=== PATIENT | female | born 1965 | race Hispanic/Latino ===

== ENCOUNTER → 2019-01-13 | Day surgery (SDC) | payer OTHER ==
[~2019-01-13] MED LIST: FENTANYL CITRATE/PF 100MCG/2 ML INJ ONE; HYOSCYAMINE 0.125 MG TAB ONE; LIPITOR20 MG; METFORMIN HCL500 MG PO; MIDAZOLAM HCL 2 MG/2 ML VIAL ONE; PANTOPRAZOLE SO40 MG PO; PROPOFOL IV EMULSION 10 MG/ML 50 ML VIAL ONE; [UNRECOGNIZED DRUG - MIXTURE]
--- OUTSIDE RECORDS SUMMARY | 2019-01-13 07:12 | XMS REPORT | Summary of Care ---
Author Author [facility] Organization [facility] Address Unknown Phone Unavailable Encounter SUNITHA Otoole(FIN) [id number] Date(s): 07/18/18 - 07/19/18 [facility] [address] [facility] [address] [place] [address]- Vital Signs No data available for this section Problem List Condition Effective Dates Status Health Status Informant BMI Active 30.0-30.9,adult(Conf irmed) Depression(Confirmed Active ) Chronic Active GERD(Confirmed) History of calculus 09/03/14 Active of kidney1 Hypertriglyceridemia Active (Confirmed) Microscopic 10/08/14 Active hematuria2 Osteopenia3 10/08/14 Active Smoker4 09/03/14 Active Diabetes type 2, Active uncontrolled(Confirm ed) Vitamin D Active deficiency(Confirmed ) 1Data migrated from [employer] on 11/04/14. 2Data migrated from [employer] on 11/04/14. 3Data migrated from [employer] on 11/04/14. 4Data migrated from [employer] on 11/04/14. Allergies, Adverse Reactions, Alerts Substance Reaction Severity Status NKDA Active Medications FreeStyle Bal [place] 1 ea, MISC, ONCE, Last HBA1c:<> Insulin Dep:Y High freq tests for: Poor control Certified Medically Necessary:<>, # 1 ea, Not insulin dependent, Does not use insulin pump, Last DM eval date 12/29/17, 0 Refill(s), [facility]acy: [id number] Start Date: 07/19/18 Status: Ordered FreeStyle Bal [place] 3 ea, MISC, Q10day, # 27 ea, Not insulin dependent, Does not use insulin pump, L ast DM eval date 12/29/17, 3 Refill(s), Pharmacy: [id number] Start Date: 07/19/18 Stop Date: 07/14/19 Status: Ordered Results No data available for this section Immunizations Given and Recorded Vaccine Date Status Refusal Reason influenza virus vaccine, inactivated1 01/24/18 Given influenza virus vaccine, inactivated2 05/22/17 Given influenza virus vaccine, inactivated 02/16/16 Given pneumococcal 23-valent vaccine3 07/19/17 Given 1Result Comment: Patient waited 15 minutes, no reaction noted. 2Result Comment: Patient waited 15 minutes, no reaction noted. 3Result Comment: Patient waited 15 minutes, no reaction noted. Procedures Procedure Date Related Diagnosis Body Site Status Colonoscopy1, 2 03/08/17 Completed Esophagogastroduodenoscopy3 02/28/17 Completed Mammogram 09/17/15 Completed Diabetic foot examination 09/09/15 Completed Bone density scan4 09/28/14 Completed Percutaneous extraction of kidney stone with 2011 Completed fragmentation procedure5 Total hysterectomy6 2004 Completed Eye operation7 1999 Completed 1Normal Next one [address] Leone 22 sessile poylps, 5 year repeat 3gastritis, hiatal hernia, reflux esophagitis 4Osteopenia 5Per patient with Dr Olivo 6oopherectomy due to fibroids 7lasix for both eyes Social History Social History Type Response Exercise Exercise duration: 60. Exercise frequency: 3-4 times/week. Exercise type: meir. Employment/School Status: Retired. Alcohol Past, Type Beer. Frequency: 1-2 times per month. Smoking Status Current every day smoker; Type: Cigarettes; Lives with someone who smokes; Exposure to Tobacco Smoke self; Cigarette Smoking Last 365 Days Yes; Reg Smoking Cessation Counseling Yes; Tobacco use per day: 10; Other Tobacco Frequency 10 cigs/day; entered on: 04/09/18 Assessment and Plan No data available for this section
--- OUTSIDE RECORDS SUMMARY | 2019-01-13 07:12 | XMS REPORT | Summary of Care ---
Author Author [facility] Organization [facility] Address Unknown Phone Unavailable Encounter SUNITHA Otoole(RESHMA) [id number] Date(s): 10/22/15 - 11/20/15 [facility] [address] [place] [address]- Discharge Disposition: Home or Self Care Attending Physician: Eli Moreno MD Referring Physician: Eli Moreno MD Vital Signs No data available for this section Problem List Condition Effective Dates Status Health Status Informant History of calculus 09/03/14 Active of kidney1 Microscopic 10/08/14 Active hematuria2 Obesity(Confirmed) Active Osteopenia3 10/08/14 Active Hypertriglyceridemia Active without hypercholesterolemia (Confirmed) Smoker4 09/03/14 Active Diabetes mellitus Active type 2, controlled(Confirmed ) 1Data migrated from [employer] on 11/04/14. 2Data migrated from [employer] on 11/04/14. 3Data migrated from [employer] on 11/04/14. 4Data migrated from [employer] on 11/04/14. Allergies, Adverse Reactions, Alerts Substance Reaction Severity Status NKDA Active Medications No data available for this section Results No data available for this section Immunizations No data available for this section Procedures Procedure Date Related Diagnosis Body Site Mammogram 09/17/15 Diabetic foot examination 09/09/15 Bone density scan1 09/28/14 Colonoscopy2 05/2013 Percutaneous extraction of kidney stone with 2011 fragmentation procedure3 Hysterectomy4 2005 Eye operation5 1999 1Osteopenia 2Normal Next one [address] Leone 3Per patient with Dr Olivo 4oopherectomy due to fibroids 5lasix for both eyes Social History Social History Type Response Alcohol Current, Type Beer. Frequency: 1-2 times per month. Smoking Status Current every day smoker; Type: Cigarettes; Exposure to Tobacco Smoke None; Cigarette Smoking Last 365 Days Yes; Reg Smoking Cessation Counseling No Assessment and Plan No data available for this section
--- OUTSIDE RECORDS SUMMARY | 2019-01-13 07:12 | XMS REPORT | Summary of Care ---
Author Author [facility] Organization [facility] Address Unknown Phone Unavailable Encounter SUNITHA Otoole(RESHMA) [id number] Date(s): 08/21/18 - 08/21/18 [facility] [address] [facility] [address] [place] [address]- Discharge Disposition: Home or Self Care Attending Physician: Eli Moreno MD Vital Signs Most recent to 1 oldest [Reference Range]: Height 149.86 cm (08/21/18 8:00 AM) Temperature Oral 98.2 DegF [96.4-99.1 DegF] (08/21/18 8:00 AM) Blood Pressure 106/70 mmHg [90-140/60-90 mmHg] (08/21/18 8:00 AM) Respiratory Rate 15 BRMIN [14-20 BRMIN] (08/21/18 8:00 AM) Peripheral Pulse 55 bpm Rate [60-100 bpm] *LOW* (08/21/18 8:00 AM) Weight 69.545 kg (08/21/18 8:00 AM) Body Mass Index 30.97 m2 (08/21/18 8:00 AM) Problem List Condition Effective Dates Status Health Status Informant BMI Active 30.0-30.9,adult(Conf irmed) Depression(Confirmed Active ) Chronic Active GERD(Confirmed) History of calculus 09/03/14 Active of kidney(Confirmed)1 Hypertriglyceridemia Active (Confirmed) Microscopic 10/08/14 Active hematuria(Confirmed) 2 Osteopenia3 10/08/14 Active Smoker4 09/03/14 Active Diabetes type 2, Active controlled(Confirmed ) Vitamin D Active deficiency(Confirmed ) 1Data migrated from [employer] on 11/04/14. 2Data migrated from [employer] on 11/04/14. 3Data migrated from [employer] on 11/04/14. 4Data migrated from [employer] on 11/04/14. Allergies, Adverse Reactions, Alerts Substance Reaction Severity Status NKDA Active Medications No Known Medications Results No data available for this section [...] Other Tobacco Frequency 10 cigs/day; entered on: 08/21/18 Assessment and Plan No data available for this section
--- OUTSIDE RECORDS SUMMARY | 2019-01-13 07:12 | XMS REPORT | Summary of Care ---
Author Author [facility] Organization [facility] Address Unknown Phone Unavailable Encounter SUNITHA Otoole(FIN) [id number] Date(s): 01/24/18 - 01/24/18 [facility] [address] [facility] [address] [place] [address]- Discharge Disposition: Home or Self Care Attending Physician: Valentina Pacheco DO Vital Signs Most recent to 1 oldest [Reference Range]: Height 149.86 cm (01/24/18 8:48 AM) Temperature Oral 98.2 DegF [96.4-99.1 DegF] (01/24/18 8:48 AM) Blood Pressure 109/67 mmHg [90-140/60-90 mmHg] (01/24/18 8:48 AM) Respiratory Rate 14 BRMIN [14-20 BRMIN] (01/24/18 8:48 AM) Peripheral Pulse 60 bpm Rate [60-100 bpm] (01/24/18 8:48 AM) Weight 68.182 kg (01/24/18 8:48 AM) Body Mass Index 30.36 m2 (01/24/18 8:48 AM) Problem List Condition Effective Dates Status [...] Substance Reaction Severity Status NKDA Active Medications losartan 25 mg oral tablet 12.5 mg=0.5 tab, PO, Daily, X 90 day, # 45 tab, 1 Refill(s), [facility]acy: [id number] Start Date: 01/24/18 Stop Date: 04/22/18 Status: Completed Results No data available for this section [...]
--- OUTSIDE RECORDS SUMMARY | 2019-01-13 07:12 | XMS REPORT | Summary of Care ---
Author Author [facility] Organization [facility] Address Unknown Phone Unavailable Encounter SUNITHA Otoole(RESHMA) [id number] Date(s): 08/30/18 - 08/30/18 [facility] [address] [place] [address]- Discharge Disposition: Home or Self Care Attending Physician: Valentina Pacheco DO Referring Physician: Valentina Pacheco DO Vital Signs No data available for this [...] [employer] on 11/04/14. Allergies, Adverse Reactions, Alerts No Known Medication Allergies Medications No data available for this section [...] Related Diagnosis Body Site Status Colonoscopy1, 2 11/9/17 Completed Esophagogastroduodenoscopy3 02/28/17 Completed Mammogram 09/17/15 Completed [...]
--- OUTSIDE RECORDS SUMMARY | 2019-01-13 07:12 | XMS REPORT | Continuity of Care Document ---
Author Author [facility] Organization [facility] Address Unknown Phone Unavailable Care Team Providers Care Emblem Cutter Name Role Phone [facility] Unavailable Unavailable Problems Problem Status Onset Date Classification Date Reported Comments Source ROUTINE Active 08/21/2018 [facility] E66.9 / Z68.31 / E11.9 / E78.6 Active 10/23/2016 [facility] E11.9 DIABETES Active 10/22/2015 [facility] SCREENING MAMMOGRAM Active 09/13/2015 [facility] E11.9 *DR. CONNER BOWMAN ADDRESS: [facility] [place] Active 04/12/2015 [facility] Microscopic hematuria (disorder) Active 10/08/2014 Problem 12/03/2018 Data migrated from [facility] on 11/04/14. [facility] Osteopenia (disorder) Active 10/08/2014 Problem 12/03/2018 Data migrated from [facility] on 11/04/14. [facility] OSTEOPENIA Active 10/08/2014 Condition 10/08/2014 [facility] HEMATURIA, MICROSCOPIC Active 10/08/2014 Condition 10/08/2014 [facility] V49.81 POSTMENOPAUSAL STATUS Active 09/24/2014 [facility] History of calculus of kidney (situation) Active 09/03/2014 Problem 12/03/2018 Data migrated from [facility] on 11/04/14. [facility] Smoker (finding) Active 09/03/2014 Problem 12/03/2018 [facility] migrated from [facility] on 11/04/14. [facility] 29.0-29.9, ADULT Active 09/03/2014 Condition 10/08/2014 [facility] PREVENTIVE HEALTH CARE Active 09/03/2014 Condition 10/08/2014 [facility] HX OF KIDNEY STONE Active 09/03/2014 Condition 10/08/2014 [facility] HYPERLIPIDEMIA Active 09/03/2014 Condition 10/08/2014 [facility] IBS (IRRITABLE BOWEL SYNDROME) Active 09/03/2014 Condition 10/08/2014 [facility] TINNITUS, UNSPECIFIED Active 09/03/2014 Condition 10/08/2014 [facility] OTHER SCREENING MAMMOGRAM Active 09/03/2014 Condition 10/08/2014 [facility] POSTMENOPAUSAL STATUS Active 09/03/2014 Condition 10/08/2014 [facility] DYSURIA Active 09/03/2014 Condition 10/08/2014 [facility] SCREENING FOR COLON CANCER Active 09/03/2014 Condition 10/08/2014 [facility] SMOKER Active 09/03/2014 Condition 10/08/2014 [facility] Hyperlipidemia (disorder) Active Problem 10/28/2016 [facility] Obesity (disorder) Active Problem 10/28/2016 [facility] Renal impairment (disorder) Active Problem 10/28/2016 [facility] Pure hyperglyceridemia (disorder) Active Problem 11/23/2015 [facility] Body mass index 30+ - obesity (finding) Active Problem 12/03/2018 [facility] Depressive disorder (disorder) Active Problem 12/03/2018 [facility] Gastroesophageal reflux disease (disorder) Active Problem 12/03/2018 [facility] Hypertriglyceridemia (disorder) Active Problem 12/03/2018 [facility] Diabetes mellitus type 2 (disorder) Active Problem 12/03/2018 [facility] Vitamin D deficiency (disorder) Active Problem 12/03/2018 [facility] Fatigue (finding) Active Problem 10/25/2017 [facility] Generalized aches and pains (finding) Active Problem 10/25/2017 [facility] Irritable colon (disorder) Active Problem 10/25/2017 [facility] Medications Medication Details Route Status Patient Instructions Ordering Provider Order Date Source FreeStyle Bal Sensor 3 ea, MISC, Q10day, # 27 ea, Not insulin dependent, Does not use insulin pump, Last DM eval date 12/29/17, 3 Refill(s), Pharmacy: [id number] Active 07/19/2018 [facility] FreeStyle Bal Potwin 1 ea, MISC, ONCE, Last HBA1c: Insulin Dep:Y High freq tests for: Poor control Certified Medically Necessary:, # 1 ea, Not insulin dependent, Does not use insulin pump, Last DM eval date 12/29/17, 0 Refill(s), Pharmacy: [facility][id number] Active 07/19/2018 [facility] metFORMIN 500 mg oral tablet, extended release See Instructions, TAKE 1 TABLET TWICE DAILY WITH MEALS, # 180 tab, 1 Refill(s), [id number] Active 05/14/2018 [facility] losartan 25 mg oral tablet 12.5 mg=0.5 tab, PO, Daily, # 45 tab, 1 Refill(s), [id number] Active 04/22/2018 [facility] Sulfamethoxazole 800 MG / Trimethoprim 160 MG Oral Tablet 1 tab, PO, BID, X 7 day, # 14 tab, 0 Refill(s), [id number] No Longer Active 04/09/2018 [facility] losartan 25 mg oral tablet 12.5 mg=0.5 tab, PO, Daily, X 90 day, # 45 tab, 1 Refill(s), [id number] No Longer Active 01/24/2018 [facility] metFORMIN 500 mg oral tablet, extended release 500 mg=1 tab, PO, BID-Meals, # 180 tab, 1 Refill(s), [id number] Active 07/20/2017 [facility] MegaKrill 0 Refill(s) Active 07/19/2017 [facility] meclizine 25 mg oral tablet 25 mg=1 tab, PO, TID, PRN for dizziness, X 21 day, # 60 tab, 0 Refill(s), [id number] No Longer Active 07/19/2017 [facility] Vitamin D3 See Instructions, 0 Refill(s) Active 07/19/2017 [facility] garlic oral capsule 0 Refill(s) Active 07/19/2017 [facility] meclizine 25 mg oral tablet 25 mg=1 tab, PO, TID, PRN for dizziness, # 60 tab, 0 Refill(s), [id number] No Longer Active 07/17/2017 [facility] ATORVASTATIN CALCIUM 20 MG TABS Take one tablet by mouth once a day Active 10/08/2014 [facility] DIALYVITE 800/ULTRA D TABS Take one tablet by mouth once a day Active 10/08/2014 [facility] DICYCLOMINE HCL 10 MG CAPS Take one capsule by mouth four times daily. Active 09/03/2014 [facility] CIPROFLOXACIN HCL 500 MG TABS Take one tablet every 12 hours No Longer Active 09/03/2014 [facility] Allergies, Adverse Reactions, Alerts Substance Category Reaction Severity Reaction type Status Date Reported Comments Source No Known Medication Allergies Assertion Drug allergy [facility] Immunizations Immunization Date Given Site Status Last Updated Comments Source influenza virus vaccine, inactivated<sup>1</sup> 01/24/2018 Left Deltoid completed [facility] Result Comment: Patient waited 15 minutes, no reaction noted. [facility] pneumococcal 23-valent vaccine<sup>3</sup> 07/19/2017 Left Deltoid completed [facility] Result Comment: Patient waited 15 minutes, no reaction noted. [facility] pneumococcal 23-valent vaccine<sup>1</sup> 07/19/2017 Left Deltoid completed [facility] Result Comment: Patient waited 15 minutes, no reaction noted. [facility] influenza virus vaccine, inactivated<sup>2</sup> 05/22/2017 Left Deltoid completed [facility] Result Comment: Patient waited 15 minutes, no reaction noted. [facility] influenza virus vaccine, inactivated 02/16/2016 Left Deltoid completed [facility] Results Order Name Results Value Reference Range Date Interpretation Comments Source Chemistry TSH 1.110 0.360 - 3.740 09/03/2014 [facility] Chemistry CHOLESTEROL 272 - 199 09/03/2014 [facility] Chemistry TRIGLYCERIDE 373 - 149 09/03/2014 [facility] Chemistry HDL 41 >=61 09/03/2014 [facility] Chemistry LDL 156 - 99 09/03/2014 [facility] Chemistry SODIUM 139 MEQ/L 135 - 145 09/03/2014 [facility] Chemistry POTASSIUM 3.7 MEQ/L 3.5 - 5.1 09/03/2014 [facility] Chemistry CREATININE 0.7 0.5 - 1.4 09/03/2014 [facility] Chemistry BUN 14 7 - 22 09/03/2014 [facility] Chemistry BUN/CREAT 20 6 - 25 09/03/2014 [facility] Chemistry ALBUMIN 4.2 3.5 - 5.0 09/03/2014 [facility] Chemistry CALCIUM 9.7 8.5 - 10.5 09/03/2014 [facility] Chemistry SGPT (ALT) 43 0 - 65 09/03/2014 [facility] Chemistry SGOT (AST) 18 0 - 37 09/03/2014 [facility] Chemistry ALK PHOS 116 39 - 136 09/03/2014 [facility] Hematology HGB 15.5 12.0 - 16.0 09/03/2014 [facility] Hematology HCT 47.0 36.0 - 48.0 09/03/2014 [facility] Hematology PLATELETS 239 K/CMM 133 - 450 09/03/2014 [facility] Urinalysis UA COLOR Yellow 09/03/2014 [facility] Urinalysis BACTERIA URN Occasional 09/03/2014 [facility] Pathology Reports No Data Provided for This Section Diagnostic Reports Report Value Date Source Breast Mammo Scrn MATEO w sabrina incl CAD MA BILATERAL DIGITAL SCREENING MAMMOGRAM 3D/2D WITH CAD: 08/30/2018 CLINICAL: /Routine. Current study was evaluated with a Computer Aided Detection (CAD) system. COMPARISON:Comparison is made to exams dated: 09/17/2015 mammogram - [facility], 04/08/2011 mammogram, and 04/10/2012 mammogram. TECHNIQUE: Digital Breast Tomosynthesis was performed and utilized for Interpretation. Getting[employer] Version 1.3 was utilized for computer aided detection. FINDINGS: There are scattered fibroglandular densities in both breasts. There are benign calcifications in both breasts. No significant masses, calcifications, or other findings are seen in either breast. There has been no significant interval change. IMPRESSION: BENIGN RECOMMENDATION:There is no mammographic evidence of malignancy. A 1 year screening mammogram is recommended.(08/31/2019) This exam was interpreted at [id number] for [facility]. Rodolfo mayorga/jennie:09/11/2018 15:30:41 [employer] Agent(s): Mallory Sanchez, [facility] letter sent: BI-RADS 1/2 Mammogram BI-RADS: 2 Benign 08/30/2018 [facility] Digital Mammo Screening Mateo [place] - DIGITAL MAMMO SCREENING MATEO MA BILATERAL DIGITAL SCREENING MAMMOGRAM WITH CAD: 09/17/2015 CLINICAL: Routine. Current study was evaluated with a Computer Aided Detection (CAD) system. Comparison is made to exams dated: 04/10/2012 mammogram and 04/08/2011 mammogram. Outside films from the [place] have been requested for recent priors. There are scattered fibroglandular densities in both breasts. No significant masses, calcifications, or other findings are seen in either breast. There has been no significant interval change. IMPRESSION: NEGATIVE There is no mammographic evidence of malignancy. A 1 year screening mammogram is recommended. Lynn Mejia M.D. ap/penrad:09/30/2015 13:25:42 [employer] Agent: Mallory Sanchez, [facility] This exam was dictated and interpreted by [id number] for [facility]. letter sent: Normal exam Mammogram BI-RADS: 1 Negative 09/17/2015 [facility] Bone Density Scan PROCEDURE: Bone Density Scan REASON FOR EXAM: See Clinic Indication CLINICAL INFORMATION V49.81 Asymptomatic Postmenopausal Status (Age-Related) (Natural) COMPARISON: None. FINDINGS: The lumbar spine bone mineral density is 0.936. This is 89% of the expected normal value, T-score is -1.0. The left hip bone mineral density is 0.838. This is 87% of the expected normal value, T-score is -0.9. The femoral neck bone mineral density is 0.677. IMPRESSION: 1. Normal bone mineral density of the lumbar spine. 2. Osteopenia of the left hip. SL: 16 09/28/2014 [facility] Consultation Notes No Data Provided for This Section Discharge Summaries No Data Provided for This Section History and Physicals No Data Provided for This Section Vital Signs Vital Sign Value Date Comments Source Temperature Oral (F) 98.2 F 08/21/2018 [facility] BMI Calculated 30.97 08/21/2018 [facility] Weight 69.545 08/21/2018 [facility] Respitory Rate 15 08/21/2018 [facility] Heart Rate 55 08/21/2018 [facility] Height 149.86 cm 08/21/2018 [facility] Systolic (mm Hg) 106 08/21/2018 [facility] Diastolic (mm Hg) 70 08/21/2018 [facility] Temperature Oral (F) 98.2 F 04/09/2018 [facility] Weight 69.545 04/09/2018 [facility] BMI Calculated 30.97 04/09/2018 [facility] Height 149.86 cm 04/09/2018 [facility] Systolic (mm Hg) 109 04/09/2018 [facility] Diastolic (mm Hg) 76 04/09/2018 [facility] Respitory Rate 14 04/09/2018 [facility] Heart Rate 81 04/09/2018 [facility] Weight 68.182 01/24/2018 [facility] Height 149.86 cm 01/24/2018 [facility] BMI Calculated 30.36 01/24/2018 [facility] Temperature Oral (F) 98.2 F 01/24/2018 [facility] Respitory Rate 14 01/24/2018 [facility] Heart Rate 60 01/24/2018 [facility] Systolic (mm Hg) 109 01/24/2018 [facility] Diastolic (mm Hg) 67 01/24/2018 [facility] Respitory Rate 14 07/19/2017 [facility] Heart Rate 61 07/19/2017 [facility] Systolic (mm Hg) 113 07/19/2017 [facility] Diastolic (mm Hg) 79 07/19/2017 [facility] BMI Calculated 31.17 07/19/2017 [facility] Temperature Oral (F) 98.0 F 07/19/2017 [facility] Height 149.86 cm 07/19/2017 [facility] Weight 70 07/19/2017 [facility] Respitory Rate 16 10/08/2014 [facility] Height 60 10/08/2014 [facility] Weight 143 10/08/2014 [facility] Systolic (mm Hg) 99 10/08/2014 [facility] Diastolic (mm Hg) 71 10/08/2014 [facility] Heart Rate 56 10/08/2014 [facility] Temperature Oral (F) 97.1 F 10/08/2014 [facility] Weight 153 09/03/2014 [facility] Respitory Rate 14 09/03/2014 [facility] Systolic (mm Hg) 110 09/03/2014 [facility] Diastolic (mm Hg) 77 09/03/2014 [facility] Temperature Oral (F) 98.0 F 09/03/2014 [facility] Heart Rate 58 09/03/2014 [facility] Height 60 09/03/2014 [facility] Encounters Location Location Details Encounter Type Encounter Number Reason For Visit Attending Provider ADM Date DC Date Status Source [facility] Lab Report [id number] Eli Wagn MD 09/03/2014 09/03/2014 Medical [facility] Office Visit [id number] Eli Wang MD 09/03/2014 09/03/2014 Medical Group [facility] Outpatient [id number] Eli Wang 09/28/2014 09/29/2014 [facility] Office Visit [id number] Eli Wang MD 10/08/2014 10/08/2014 [facility] Out[facility] [id number] LEI WANG 02/04/2015 Active [facility] [id number] CONNER BOWMAN 03/30/2015 Active [facility] [id number] ELI WANG 09/09/2015 Active [facility] [id number] Eli Wang 09/17/2015 09/18/2015 [facility] OP Recurring [id number] Eli Wang 10/22/2015 11/21/2015 [facility] Outpatient [id number] ELI WANG 12/10/2015 Active [facility] [id number] CHELSEA JASON 02/16/2016 Active [facility] [id number] CHELSEA HOUSTONH 06/14/2016 Active [facility] [id number] ELI WANG 07/17/2016 Active [facility] [id number] CHELSEA HOUSTONH 09/11/2016 Active [facility] Recurring [id number] Chelsea Houstonh 09/26/2016 10/26/2016 [facility] Outpatient [id number] CHELSEA HOUSTONH 01/26/2017 [facility] [id number] NURSE VISIT 05/22/2017 [facility] Primary Care [facility] Phone Message [id number] 07/16/2017 07/18/2017 [facility] Outpatient [id number] CHELSEA JASON 07/19/2017 [facility] Primary Care [facility] Outpatient [id number] Eli Wang 07/19/2017 07/20/2017 [facility] Outpatient [id number] CHELSEA JASON 01/24/2018 [facility] Primary Care [facility] Outpatient [id number] Chelsea Jason 01/24/2018 01/25/2018 [facility] Outpatient [id number] CHELSEA JASON 04/09/2018 [facility] Primary Care [facility] Outpatient [id number] Chelsea Jason 04/09/2018 04/10/2018 [facility] Phone Message [id number] 05/14/2018 05/16/2018 [facility] Phone Message [id number] 07/18/2018 07/20/2018 [facility] Outpatient [id number] Chelsea Casie 08/21/2018 Active [facility] Outpatient [id number] Eli Wang 08/21/2018 08/22/2018 [facility] Outpatient [id number] Chelsea Houstonh 08/30/2018 08/31/2018 [facility] Procedures Procedure Code Date Perfomer Comments Source Colonoscopy<sup>1, 2</sup> [id number] 03/08/2017 Normal Next one [address] Leone sessile poylps, 5 year repeat [facility] Esophagogastroduodenoscopy<sup>3</sup> [id number] 02/28/2017 gastritis, hiatal hernia, reflux esophagitis [facility] Mammogram [id number] 09/17/2015 [facility] Diabetic foot examination 144558201 09/09/2015 [facility] Bone density scan<sup>1</sup> 878277792 09/28/2014 Osteopenia [facility] Bone density scan<sup>4</sup> [id number] 09/28/2014 Osteopenia [facility] smoking/tobacco cessation, patient education and counseling 14 09/03/2014 yes [facility] Colonoscopy<sup>2</sup> [id number] 05/31/2013 Normal Next one [address] Leone [facility] Percutaneous extraction of kidney stone with fragmentation procedure<sup>3</sup> [id number] 04/30/[address] Olivo [facility] Percutaneous extraction of kidney stone with fragmentation procedure<sup>5</sup> [id number] 04/30/[address]ivo [facility] Total hysterectomy<sup>4</sup> 462218988 04/30/2004 oopherectomy due to fibroids [facility] Hysterectomy<sup>4</sup> 582516513 04/30/2004 oopherectomy due to fibroids [facility] Total hysterectomy<sup>6</sup> 163145743 04/30/2004 oopherectomy due to fibroids [facility] Eye operation<sup>5</sup> 482286997 04/30/1999 lasix for both eyes [facility] Eye operation<sup>7</sup> 430647231 04/30/1999 lasix for both eyes [facility] Assessment and Plan No Data Provided for This Section Plan of Care No Data Provided for This Section Social History Social History Date Source Social History TypeResponse Exercise Exercise duration: 60. Exercise frequency: 3-4 [...] Tobacco Frequency 10 cigs/day; entered on: 08/21/18 07/19/2017 [facility] Social History TypeResponse Exercise Exercise duration: 60. Exercise frequency: 3-4 [...] Tobacco Frequency 10 cigs/day; entered on: 08/21/18 07/19/2017 [facility] Family History No Data Provided for This Section Advance Directives No Data Provided for This Section Functional Status No Data Provided for This Section
--- OUTSIDE RECORDS SUMMARY | 2019-01-13 07:12 | XMS REPORT | Summary of Care ---
Author Author [facility] Organization [facility] Address Unknown Phone Unavailable Encounter SUNITHA Otoole(RESHMA) [id number] Date(s): 09/17/15 - 09/17/15 [facility] [address] [place] [address]- Discharge Disposition: Home Attending Physician: Eli Moreno MD Referring Physician: [...] Procedures Procedure Date Related Diagnosis Body Site Diabetic foot examination 09/09/15 Bone density scan1 [...]
--- OUTSIDE RECORDS SUMMARY | 2019-01-13 07:12 | XMS REPORT | Summary of Care ---
Author Author [facility] Organization [facility] Address Unknown Phone Unavailable Encounter SUNITHA Otoole(FIN) [id number] Date(s): 07/16/17 - 07/17/17 [facility] [address], [address] [place] [address]- [phone] Vital Signs No data available for this section Problem List Condition Effective Dates Status Health Status Informant BMI Active 31.0-31.9,adult(Conf irmed) Depression(Confirmed Active ) Fatigue(Confirmed) Active Chronic Active GERD(Confirmed) Body Active aches(Confirmed) History of calculus 09/03/14 Active of kidney1 Hypertriglyceridemia Active (Confirmed) Irritable Active bowel(Confirmed) Microscopic 10/08/14 Active hematuria2 Osteopenia3 10/08/14 Active Smoker4 09/03/14 Active Diabetes mellitus Active type 2, controlled(Confirmed ) Vitamin D Active deficiency(Confirmed ) 1Data migrated from [employer] on 11/04/14. 2Data migrated from [employer] on 11/04/14. 3Data migrated from [employer] on 11/04/14. 4Data migrated from [employer] on 11/04/14. Allergies, Adverse Reactions, Alerts Substance Reaction Severity Status NKDA Active Medications meclizine 25 mg oral tablet 25 mg=1 tab, PO, TID, PRN for dizziness, # 60 tab, 0 Refill(s), [id number] Start Date: 07/17/17 Stop Date: 07/19/17 Status: Discontinued metFORMIN 500 mg oral tablet, extended release 500 mg=1 tab, PO, BID-Meals, # 180 tab, 1 Refill(s), Pharmacy: [facility]/pharmacy #[id number] Start Date: 07/20/17 Stop Date: 01/16/18 Status: Ordered Results No data available for this section Immunizations Given and Recorded Vaccine Date Status Refusal Reason pneumococcal 23-valent vaccine1 07/19/17 Given influenza virus vaccine, inactivated2 05/22/17 Given influenza virus vaccine, inactivated 02/16/16 Given 1Result Comment: Patient waited 15 minutes, [...] Other Tobacco Frequency 10 cigs/day; entered on: 07/19/17 Assessment and Plan No data available for this section
--- OUTSIDE RECORDS SUMMARY | 2019-01-13 07:12 | XMS REPORT | Summary of Care ---
Author Organization Unknown Address Unknown Phone Unavailable Encounter [facility]) [id number] Date(s): 09/28/14 - 09/28/14 [facility] [address] [place] [address]- Discharge Disposition: Home Physician Attending: Eli Moreno MD Physician_Referring: Eli Moreno MD Vital Signs No data available for this section Problem List No data available for this section Allergies, Adverse Reactions, Alerts Substance Reaction Severity Status NKDA Active Medications No data available for this section Results No data available for this section Immunizations No data available for this section Procedures No data available for this section Social History Social History Type Response Assessment and Plan No data available for this section
--- OUTSIDE RECORDS SUMMARY | 2019-01-13 07:12 | XMS REPORT | Summary of Care ---
Author Author [facility] Organization [facility] Address Unknown Phone Unavailable Encounter SUNITHA Otoole(FIN) [id number] Date(s): 05/14/18 - 05/15/18 [facility] [address] [place] [address]- Vital Signs No data available for this [...] Reactions, Alerts No Known Medication Allergies Medications metFORMIN 500 mg oral tablet, extended release See Instructions, TAKE 1 TABLET TWICE DAILY WITH MEALS, # 180 tab, 1 Refill(s), Pharmacy: [facility]/pharmacy #[id number] Start Date: 05/14/18 Status: Ordered Results No data available for [...]
--- OUTSIDE RECORDS SUMMARY | 2019-01-13 07:12 | XMS REPORT | Continuity of Care Document ---
Author Author [facility] Address Unknown Phone Unavailable Care Team Providers Care Medical Technologist Chief Name Role Phone MD Tiffanie, Eli WEBER Unavailable Insurance Providers Payer name Policy type / Coverage type Policy ID Covered democrat ID Policy Gonzalez CIGNA (PPO) CIGNA (PPO) CIGNA - OPEN ACCESS PLUS CIGNA (PPO) CIGNA - OPEN ACCESS PLUS CIGNA (PPO) CIGNA (PPO) CIGNA (PPO) CIGNA (PPO) CIGNA (PPO) CIGNA (PPO) Encounters Encounter Performer Location Date Office Visit Eli Moreno MD [facility] September 03, 2014 Problems Problem Effective Dates Problem Status BODY MASS INDEX 29.0-29.9, ADULT September 03, 2014 Active PREVENTIVE HEALTH CARE September 03, 2014 Active HX OF KIDNEY STONE September 03, 2014 Active HYPERLIPIDEMIA September 03, 2014 Active IBS (IRRITABLE BOWEL SYNDROME) September 03, 2014 Active TINNITUS, UNSPECIFIED September 03, 2014 Active OTHER SCREENING MAMMOGRAM September 03, 2014 Active POSTMENOPAUSAL STATUS September 03, 2014 Active DYSURIA September 03, 2014 Active SCREENING FOR COLON CANCER September 03, 2014 Active SMOKER September 03, 2014 Active Procedures Date Description Comments September 03, 2014 smoking status Current every day smoker September 03, 2014 smoking/tobacco cessation, patient education and counseling yes Medications Medication Instructions Start Date Status DICYCLOMINE HCL 10 MG CAPS Take one capsule by mouth four times daily. September 03, 2014 Active CIPROFLOXACIN HCL 500 MG TABS Take one tablet every 12 hours September 03, 2014 Active Vital Signs Date Description Test Result September 03, 2014 weight E&M - 3141-9 WEIGHT 153 lb September 03, 2014 respiratory rate E&M - 9279-1 RESP RATE 14 /min September 03, 2014 blood pressure, systolic - 8480-6 BP SYSTOLIC 110 mm Hg September 03, 2014 blood pressure, diastolic - 8462-4 BP DIASTOLIC 77 mm Hg September 03, 2014 temperature E&M TEMPERATURE 98.0 deg f September 03, 2014 pulse rate E&M - 8867-4 PULSE RATE 58 /min September 03, 2014 height E&M - 8302-2 HEIGHT 60 in Results Date Description Test Name Value Reference Interpretation Status September 03, 2014 hemoglobin, blood HGB 15.5 g/dL 12.0-16.0 September 03, 2014 hematocrit, blood HCT 47.0 % 36.0-48.0 September 03, 2014 platelet count PLATELETS 239 K/CMM /mm3 133-450 September 03, 2014 urine color UA COLOR Yellow null Yellow September 03, 2014 bacteria, urine microscopy BACTERIA URN Occasional null None Seen September 03, 2014 thyroid stimulating hormone, serum TSH 1.110 uIU/mL 0.360-3.740 September 03, 2014 cholesterol, serum CHOLESTEROL 272 mg/dl <=199 High September 03, 2014 triglyceride, serum, fasting TRIGLYCERIDE 373 mg/dl <=149 High September 03, 2014 HDL cholesterol, serum HDL 41 mg/dl >=61 Low September 03, 2014 LDL cholesterol, serum LDL 156 mg/dl <=99 High September 03, 2014 sodium, serum SODIUM 139 MEQ/L mmol/L 135-145 September 03, 2014 potassium, serum POTASSIUM 3.7 MEQ/L mmol/L 3.5-5.1 September 03, 2014 creatinine, serum CREATININE 0.7 mg/dL 0.5-1.4 September 03, 2014 urea nitrogen, blood BUN 14 mg/dL -September 03, 2014 urea nitrogen/creatinine ratio, serum BUN/CREAT 20 null -September 03, 2014 albumin, serum ALBUMIN 4.2 g/dL 3.5-5.0 September 03, 2014 calcium, serum CALCIUM 9.7 mg/dL 8.5-10.5 September 03, 2014 alanine aminotransferase (SGPT), serum SGPT (ALT) 43 U/L 0-65 September 03, 2014 aspartate aminotransferase (SGOT), serum SGOT (AST) 18 U/L 0-37 September 03, 2014 alkaline phosphatase, serum ALK PHOS 116 U/L 39-136
--- OUTSIDE RECORDS SUMMARY | 2019-01-13 07:12 | XMS REPORT | Summary of Care ---
Author Author [facility] Organization [facility] Address Unknown Phone Unavailable Encounter SUNITHA Otoole(RESHMA) [id number] Date(s): 09/26/16 - 10/25/16 [facility] [address] [place] [address]- Discharge Disposition: Home or Self Care Attending Physician: Valentina Pacheco DO Referring Physician: Valentina Pacheco DO Vital Signs No data available for this section Problem List Condition Effective Dates Status Health Status Informant History of calculus 09/03/14 Active of kidney1 Hyperlipidemia(Confi Active rmed) Microscopic 10/08/14 Active hematuria2 Obesity(Confirmed) Active Osteopenia3 10/08/14 Active Renal Active insufficiency(Confir med) Smoker4 09/03/14 Active Diabetes mellitus Active type [...] Date Status Refusal Reason influenza virus vaccine, inactivated 02/16/16 Given Procedures Procedure Date Related Diagnosis Body Site Mammogram 09/17/15 Diabetic foot examination 09/09/15 Bone density scan1 09/28/14 Colonoscopy2 05/2013 Percutaneous extraction of kidney stone with 2011 fragmentation procedure3 Total hysterectomy4 2004 Eye operation1999 1Osteopenia 2Normal Next one [address] Leone 3Per patient with Dr Olivo 4oopherectomy due to fibroids 5lasix for both eyes Social History Social History Type Response Employment/School 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 Alcohol Past, Type Beer. Frequency: 1-2 times per month. Smoking Status Current every day smoker; Type: Cigarettes; Tobacco use per day: 7; Lives with someone who smokes; Exposure to Tobacco Smoke self; Cigarette Smoking Last 365 Days Yes; Reg Smoking Cessation Counseling Yes Assessment and Plan No data available for this section
--- OUTSIDE RECORDS SUMMARY | 2019-01-13 07:12 | XMS REPORT | Summary of Care ---
Author Author [facility] Organization [facility] Address Unknown Phone Unavailable Encounter SUNITHA Otoole(RESHMA) [id number] Date(s): 04/09/18 - 04/09/18 [facility] [address] [place] [address]- Discharge Disposition: Home or Self Care Attending Physician: Valentina Pacheco DO Vital Signs Most recent to 1 oldest [Reference Range]: Height 149.86 cm (04/09/18 1:30 PM) Temperature Oral 98.2 DegF [96.4-99.1 DegF] (04/09/18 1:30 PM) Blood Pressure 109/76 mmHg [90-140/60-90 mmHg] (04/09/18 1:30 PM) Respiratory Rate 14 BRMIN [14-20 BRMIN] (04/09/18 1:30 PM) Peripheral Pulse 81 bpm Rate [60-100 bpm] (04/09/18 1:30 PM) Weight 69.545 kg (04/09/18 1:30 PM) Body Mass Index 30.97 m2 (04/09/18 1:30 PM) Problem List Condition Effective Dates Status Health [...] Reactions, Alerts No Known Medication Allergies Medications losartan 25 mg oral tablet 12.5 mg=0.5 tab, PO, Daily, # 45 tab, 1 Refill(s), [id number] Start Date: 04/22/18 Stop Date: 10/19/18 Status: Ordered sulfamethoxazole-trimethoprim DS 800 mg-160 mg oral tablet 1 tab, PO, BID, X 7 day, # 14 tab, 0 Refill(s), Pharmacy: [facility]/pharmacy #[id number] Start Date: 04/09/18 Stop Date: 04/16/18 Status: Completed Results No data available for [...]
--- OUTSIDE RECORDS SUMMARY | 2019-01-13 07:12 | XMS REPORT | Summary of Care ---
Author Author [facility] Organization [facility] Address Unknown Phone Unavailable Encounter SUNITHA Otoole(RESHMA) [id number] Date(s): 07/19/17 - 07/19/17 [facility] [address], [address] [place] [address]- [phone] Discharge Disposition: Home or Self Care Attending Physician: Eli Moreno MD Vital Signs Most recent to 1 oldest [Reference Range]: Height 149.86 cm (07/19/17 8:37 AM) Temperature Oral 98.0 DegF [96.4-99.1 DegF] (07/19/17 8:37 AM) Blood Pressure 113/79 mmHg [90-140/60-90 mmHg] (07/19/17 8:37 AM) Respiratory Rate 14 BRMIN [14-20 BRMIN] (07/19/17 8:37 AM) Peripheral Pulse 61 bpm Rate [60-100 bpm] (07/19/17 8:37 AM) Weight 70 kg (07/19/17 8:37 AM) Body Mass Index 31.17 m2 (07/19/17 8:37 AM) Problem List Condition Effective Dates Status [...] Centricity on 11/04/14. 4Data migrated from [employer] on 11/04/14. Allergies, Adverse Reactions, Alerts Substance Reaction Severity Status NKDA Active Medications garlic oral capsule 0 Refill(s) Start Date: 07/19/17 Status: Ordered meclizine 25 mg oral tablet 25 mg=1 tab, PO, TID, PRN for dizziness, X 21 day, # 60 tab, 0 Refill(s), Pharma cy: [id number] Start Date: 07/19/17 Stop Date: 08/09/17 Status: Completed MegaKrill 0 Refill(s) Start Date: 07/19/17 Status: Ordered Vitamin D3 See Instructions, 0 Refill(s) Start Date: 07/19/17 Status: Ordered Results No data available for [...]
--- OUTSIDE RECORDS SUMMARY | 2019-01-13 07:13 | XMS REPORT | Continuity of Care Document ---
Author Author [facility] Organization [facility] Address Unknown Phone Unavailable Care Team Providers Care Lurer Name Role Phone MD Tiffanie, Eli WEBER [...] Location Date Office Visit Eli Moreno MD [facility] Oct 08, 2014 Problems Problem Effective Dates Problem Status [...] 2014 Active SMOKER September 03, 2014 Active HYPERLIPIDEMIA Oct 08, 2014 Active OSTEOPENIA Oct 08, 2014 Active HEMATURIA, MICROSCOPIC Oct 08, 2014 Active Procedures Date Description Comments September 03, 2014 smoking status Current every day smoker September 03, 2014 smoking/tobacco cessation, patient education and counseling yes Oct 08, 2014 smoking status Current every day smoker Oct 08, 2014 smoking/tobacco cessation, patient education and counseling yes Medications Medication Instructions Start Date Status DICYCLOMINE HCL 10 MG CAPS Take one capsule by mouth four times daily. September 03, 2014 Active CIPROFLOXACIN HCL 500 MG TABS Take one tablet every 12 hours September 03, 2014 Inactive ATORVASTATIN CALCIUM 20 MG TABS Take one tablet by mouth once a day Oct 08, 2014 Active DIALYVITE 800/ULTRA D TABS Take one tablet by mouth once a day Oct 08, 2014 Active Vital Signs Date Description Test [...] height E&M - 8302-2 HEIGHT 60 in Oct 08, 2014 respiratory rate E&M - 9279-1 RESP RATE 16 /min Oct 08, 2014 height E&M - 8302-2 HEIGHT 60 in Oct 08, 2014 weight E&M - 3141-9 WEIGHT 143 lb Oct 08, 2014 blood pressure, systolic - 8480-6 BP SYSTOLIC 99 mm Hg Oct 08, 2014 blood pressure, diastolic - 8462-4 BP DIASTOLIC 71 mm Hg Oct 08, 2014 pulse rate E&M - 8867-4 PULSE RATE 56 /min Oct 08, 2014 temperature E&M TEMPERATURE 97.1 deg f Results Date Description Test Name Value Reference [...] 2014 urea nitrogen, blood BUN 14 mg/dL 7-September 03, 2014 urea nitrogen/creatinine ratio, serum BUN/CREAT 20 null 6-September 03, 2014 albumin, serum ALBUMIN 4.2 g/dL 3.5-5.0 September 03, 2014 calcium, serum CALCIUM 9.7 mg/dL 8.5-10.5 September 03, 2014 alanine aminotransferase (SGPT), serum SGPT (ALT) 43 U/L 0-65 September 03, 2014 aspartate aminotransferase (SGOT), serum SGOT (AST) 18 U/L 0-37 September 03, 2014 alkaline phosphatase, serum ALK PHOS 116 U/L 39-136
--- OUTSIDE RECORDS SUMMARY | 2019-01-13 07:13 | XMS REPORT | Continuity of Care Document ---
Author Author [facility] Address Unknown Phone Unavailable Care Team Providers Care Window Caser Name Role Phone MD Tiffanie, Eli WEBER Unavailable Insurance Providers Payer name Policy type / Coverage type Policy ID Covered green party ID Policy Gonzalez CIGNA (PPO) CIGNA (PPO) CIGNA - OPEN ACCESS PLUS CIGNA (PPO) CIGNA - OPEN ACCESS PLUS CIGNA (PPO) CIGNA (PPO) CIGNA (PPO) CIGNA (PPO) CIGNA (PPO) CIGNA (PPO) Encounters Encounter Performer Location Date Lab Report Eli Moreno MD [facility] September 03, 2014 Problems [...]
--- OUTSIDE RECORDS SUMMARY | 2019-01-13 07:13 | XMS REPORT ---
Author Author [facility] Address Unknown Phone Unavailable Care Team Providers Care Obiee Architect Name Role Phone Unavailable Unavailable Problems This patient has no known problems. Allergies, Adverse Reactions, Alerts This patient has no known allergies or adverse reactions. Medications This patient has no known medications. Encounters Start Date/Time End Date/Time Encounter Type Admission Type Attending [facility] Facility Care Department Encounter ID 2018-08-30 15:09:00 2018-08-30 15:09:00 Outpatient [id number]
--- OUTSIDE RECORDS SUMMARY | 2019-01-13 07:13 | XMS REPORT | Continuity of Care Document ---
Author Author [facility] Address Unknown Phone Unavailable Care Team Providers Care Cisco Administrator Name Role Phone MD Tiffanie, Eli WEBER Unavailable Insurance Providers Payer name Policy type / Coverage type Policy ID Covered libertarian ID Policy Gonzalez CIGNA (PPO) CIGNA (PPO) CIGNA - OPEN ACCESS PLUS CIGNA (PPO) CIGNA - OPEN ACCESS PLUS CIGNA (PPO) CIGNA (PPO) CIGNA (PPO) CIGNA (PPO) CIGNA (PPO) CIGNA (PPO) Encounters Encounter Performer Location Date Lab Report Eli Moreno MD [facility] September 03, 2014 Problems [...]
[2019-01-13 10:25] VITALS: BP 123/82
[2019-01-13 12:09] LABS: WBC,FECAL (FECAL LACTOFERRIN) NEGATIVE (NEGATIVE)
--- NOTE | 2019-01-13 13:39 | Operative Report ---
DATE OF PROCEDURE: 01/13/2019 SURGEON: Tj Nguyen MD PROCEDURES: EGD with biopsies and esophageal dilatation and colonoscopy with biopsies. INDICATIONS FOR EGD: Heartburn, bloating, dysphagia to solids. INDICATIONS FOR COLONOSCOPY: Surveillance colonoscopy, lower abdominal pain, personal history of colon polyps, history of bright red blood per rectum. MEDICATIONS: The patient was done under MAC, please see anesthesiologist's note. PROCEDURE IN DETAIL: With the patient in left lateral decubitus position, the flexible fiberoptic Olympus gastroscope was introduced into the esophagus under direct visualization without any difficulty. There was some patchy erythema noted in distal esophagus. A mild stricture was noted at the GE junction that was dilated to size 50-Ivorian Hammer. The scope was then advanced with ease into the stomach. Mucosa overlying the antrum and the body revealed some patchy erythema and low-grade to moderate edema, and biopsies were obtained and sent to stain for H. pylori. The pylorus was of normal contour and shape, it was intubated with ease and the scope was advanced all the way to the second portion of the duodenum. Biopsies were obtained from the second portion as well as from the duodenal bulb to rule out sprue. The scope was then withdrawn back into the stomach and retroflexed, and mucosa overlying the fundus and the cardia appeared to be within normal limits. The scope was then straightened out. The stomach was decompressed. The scope was subsequently withdrawn. The patient tolerated the procedure well. IMPRESSION: 1. Distal esophagitis, mild. 2. Esophageal stricture at GE junction dilated to size 50-Ivorian Hammer. 3. Gastritis, biopsied, biopsies sent to stain for Helicobacter pylori. 4. Rule out sprue. PLAN: Follow up histology. Increase Protonix to 40 mg one p.o. before meals b.i.d. The patient was then turned around and after adequate lubrication of the anal canal, flexible fiberoptic Olympus colonoscope was inserted into the rectum with ease and advanced all the way to the cecum. Mucosa overlying the cecum appeared to be within normal limits. The ileocecal valve was intubated and the scope was advanced into the terminal ileum. Biopsies were obtained. The scope was then withdrawn back into the colon. Mucosa overlying the ascending and the transverse grossly appeared to be within normal limits. The mucosa overlying the descending, sigmoid, and rectum revealed some patchy mild inflammatory changes and multiple random biopsies were obtained. The scope was then retroflexed into the distal rectum and small internal hemorrhoids were noted, none of which was actively bleeding. The scope was then straightened out and it was subsequently withdrawn after securing an adequate stool specimen that was sent for the appropriate stool studies. The patient tolerated the procedure well. IMPRESSION: 1. Mild patchy left-sided colitis. 2. Proctitis, mild. 3. Internal hemorrhoids, none actively bleeding. PLAN: Follow up histology. Follow up stool studies. Initiate Bentyl 10 mg one p.o. t.i.d. and Visbiome 1 p.o. b.i.d. the patient might benefit from a followup colonoscopy in 3 to 5 years. Tj Nguyen MD [facility] [place]/MODL /[id number] cc: Michelle Herrmann MD
[2019-01-14 10:53] LABS: C DIFFICILE TOXIN A&B AMP PROB NEGATIVE (NEGATIVE)
== END | disposition home or self-care (01) ==
LOC: OR 07:01
PROVIDERS: ATTEND Internal Medicine Gastroenterology
DX: K29.70 Gastritis, unspecified, without bleeding (principal); K22.2 Esophageal obstruction; K29.80 Duodenitis without bleeding; K20.9 Esophagitis, unspecified; K51.50 Left sided colitis without complications; K59.00 Constipation, unspecified; K62.89 Other specified diseases of anus and rectum; K64.8 Other hemorrhoids; E11.9 Type 2 diabetes mellitus without complications; F17.200 Nicotine dependence, unspecified, uncomplicated; Z01.810 Encounter for preprocedural cardiovascular examination; Z79.84 Long term (current) use of oral hypoglycemic drugs
CPT/HCPCS: 36415; 43239; 43450; 45380; 82948; 83630; 83993; 87045; 87177; 87328; 87493; 93005; J2250; J2704; J3010; 45378

== ENCOUNTER → 2019-03-12 | Outpatient (CLI) | payer OTHER ==
[~2019-03-12] MED LIST changes: -FENTANYL CITRATE/PF 100MCG/2 ML INJ ONE; -HYOSCYAMINE 0.125 MG TAB ONE; -MIDAZOLAM HCL 2 MG/2 ML VIAL ONE; -PROPOFOL IV EMULSION 10 MG/ML 50 ML VIAL ONE
--- NOTE | 2019-03-12 08:36 | Diagnostic Imaging Report ---
EXAM: Right upper quadrant abdominal ultrasound INDICATION: Right upper quadrant pain COMPARISON: None. TECHNIQUE: Transverse and longitudinal images of the right upper quadrant abdomen were obtained FINDINGS: Liver: Size: 14.1 cm in the right midclavicular line, normal Appearance: Increased echogenicity, smooth contour Mass: No focal masses Gallbladder: No gallbladder distension, pericholecystic fluid, wall thickening, stone, or reported sonographic Huff's sign. Gallbladder wall measures 2 mm . Bile Ducts: Intrahepatic Ducts: No dilatation Extrahepatic Ducts: Common bile duct measures 3 mm, no dilatation Pancreas: Visualized portions of the pancreatic head, neck and proximal body are normal. Kidney: The right kidney measures 11.4 cm without evidence of hydronephrosis or stone. Vessels: Aorta: Visualized portions are normal Inferior Vena Cava: Visualized portions are normal Main Portal Vein: 0.9 cm, normal size with hepatopetal flow. Free Fluid: No ascites or pleural effusion IMPRESSION: Hepatic steatosis. No cholelithiasis or sonographic evidence of cholecystitis. Signed by: Lacie Alejandre MD on 03/12/2019 8:32 AM
== END ==
LOC: US 07:35
PROVIDERS: ATTEND Internal Medicine Gastroenterology
DX: R10.11 Right upper quadrant pain (principal); K76.0 Fatty (change of) liver, not elsewhere classified
CPT/HCPCS: 76705

== ENCOUNTER → 2019-03-26 | Outpatient (CLI) | payer OTHER ==
--- NOTE | 2019-03-26 18:28 | Diagnostic Imaging Report ---
Hepatobiliary Scan with Gallbladder Ejection Fraction Clinical information: RUQ pain Report: Following intravenous administration of 6.6 millicuries of Tc-99m mebrofenin, dynamic images of the abdomen in the anterior projection were obtained through 60 minutes. Sincalide (CCK analog) 1.4 micrograms was administered intravenously over 30 minutes with additional imaging for determination of gallbladder ejection fraction. Perfusion to the liver is normal. Extraction of tracer from the blood pool by the liver parenchyma is normal. Tracer is seen promptly within the biliary tract. The gallbladder begins to fill by 7 minutes post-injection of tracer and fills adequately. Tracer is seen in the small bowel during the sincalide infusion. The gallbladder ejection fraction with administration of sincalide is 87% (normal greater than 40%). Impression: 1. Filling of the gallbladder excludes the diagnosis of acute cystic duct obstruction/acute cholecystitis. 2. Normal gallbladder ejection fraction of 87% does not support the clinical diagnosis of chronic cholecystitis/gallbladder dyskinesia. Signed by: Dr. Ирина Mccoy M.D. on 03/26/2019 6:25 PM
== END ==
LOC: NM 08:14
PROVIDERS: ATTEND Internal Medicine Gastroenterology
DX: R10.11 Right upper quadrant pain (principal)
CPT/HCPCS: 78227; A9537

== ENCOUNTER 2019-12-19 16:28 | Emergency (ER) | payer OTHER ==
[~2019-12-19] VITALS: Ht 149.9 cm; Wt 68.5 kg
[2019-12-19] MEDS ORDERED: SODIUM CHLORIDE 0.9% 1000ML 1,000 ML IV STA (16:42)
[2019-12-19 16:50] LABS: BASOPHILS # (AUTO) 0.1 (0.0-0.1); BASOPHILS % 0.6 % (0.0-1.0); EOSINOPHILS # (AUTO) 0.1 (0.0-0.4); EOSINOPHILS % 1.1 % (0.0-6.0); HEMATOCRIT 42.8 % (34.2-44.1); HEMOGLOBIN 14.4 g/dL (12.0-16.0); LYMPHOCYTES # (AUTO) 2.5 (1.0-3.2); MEAN CORPUSCULAR HEMOGLOBIN 27.6 pg (28-32); MEAN CORPUSCULAR HGB CONC 33.6 g/dL (31-35); MEAN CORPUSCULAR VOLUME 82.1 fL (81-99); MONOCYTES # (AUTO) 0.5 (0.2-0.8); MONOCYTES % 4.8 % (4.4-11.3); NEUTROPHILS # (AUTO) 6.5 (2.1-6.9); NEUTROPHILS % 66.9 % (38.7-80.0); PLATELET COUNT 246 x10e3/uL (140-360); RED BLOOD COUNT 5.21 x10e6/uL (3.6-5.1); RED CELL DISTRIBUTION WIDTH 12.4 % (11.7-14.4)
[2019-12-19] MEDS ORDERED: ONDANSETRON HCL INJ 2MG/ML 2ML 2 MG/ML VIAL IV STA (16:55)
[2019-12-19] MEDS ORDERED: DIAZEPAM 5 MG TAB PO ONE (17:00)
[2019-12-19 17:04] LABS: INR 0.91; PROTHROMBIN TIME 12.7 seconds (11.9-14.5)
[2019-12-19 17:12] LABS: ALANINE AMINOTRANSFERASE 55 IU/L (0-55); ALBUMIN/GLOBULIN RATIO 1.3 (0.8-2.0); ALKALINE PHOSPHATASE 114 IU/L (40-150); BLOOD UREA NITROGEN 8 mg/dL (7-26); BUN/CREATININE RATIO 11 (6-25); CALCIUM 9.2 mg/dL (8.4-10.2); CARBON DIOXIDE 20 mmol/L (22-29); CHLORIDE 106 mmol/L (98-107); CREATINE KINASE 81 IU/L (29-168); CREATININE, SERUM 0.71 mg/dL (0.57-1.11); EST GLOMERULAR FILTRATION RATE > 60 ML/MIN (60-); GLUCOSE 165 mg/dL (74-118); SODIUM 140 mmol/L (136-145)
--- NOTE | 2019-12-19 17:17 | Emergency Department Note ---
History of Present Illnes History of Present Illness Chief Complaint: Neurological History of Present Illness This is a 54 year old female PT STATES SHE BECAME EXTREMELY DIZZY TODAY. PT STATES SHE HAS A HX OF VERTIGO IN THE PAST AND HAS A PRESCRIPTION FOR MECLIZINE. PT STATES SHE TOOK 3 MECLIZINE PRIOR TO CALLING EMS, NOW FEELS MUCH BETTER. PT NOTES SHE HAS PAST MEDICAL HX OF VERTIGO, DM II FOR WHICH SHE TAKES METFORMIN FOR DAILY, AND LIPITOR. PT ALSO NOTES HER LIPITOR DOSAGE WAS INCREASED FROM 20 MG TO 40 MG BY HER PCP DR. DYE. Historian: Patient, Cab Driver/EMS Arrival Mode: [facility] Treatment WHITING MACHINE OPERATOR: IV Additional Treatment WHITING MACHINE OPERATOR: ZOFRAN 4MG PER EMS [employer] Required: No Onset (how long ago): year(s) Location: HEAD Quality: VERTIGO Radiation: Reports non-radiation Severity: severe Onset quality: gradual Timing of current episode: intermittent Progression: waxing and waning Chronicity: chronic Context: Denies recent illness Relieving factors: other (NOW IMPROVED WITH MECLIZINE AND ZOFRAN) Exacerbating factors: movement Associated symptoms: Reports denies other symptoms Treatments prior to arrival: none (SENTHIL ELY MD) Past Medical/Family History Physician Review I have reviewed the patient's past medical and family history. Any updates have been documented here. (SENTHIL ELY MD) Past Medical History Recent Fever: No Clinical Suspicion of Infectio: No New/Unexplained Change in Ment: No Past Medical History: Diabetes, Hyperlipedemia Other Medical History: VERTIGO Past Surgical History: None (SENTHIL ELY MD) Social History Smoking Cessation: Never Smoker Counseling Performed: No Alcohol Use: None Any Illegal Drug Use: No TB Exposure/Symptoms: No Physically hurt or threatened: No (SENTHIL ELY MD) Family History Family history of heart diseas: No (SENTHIL ELY MD) Other Any Pre-Existing Lines (PICC,: No (SENTHIL ELY MD) Review of Systems Review of Systems Constitutional: Reports no symptoms EENTM: Reports no symptoms Cardiovascular: Reports no symptoms Respiratory: Reports no symptoms Gastrointestinal: Reports as per HPI, Reports nausea Genitourinary: Reports no symptoms Musculoskeletal: Reports no symptoms Integumentary: Reports no symptoms Neurological: Reports as per HPI Psychological: Reports no symptoms Endocrine: Reports no symptoms Hematological/Lymphatic: Reports no symptoms (SENTHIL ELY MD) Physical Exam Related Data Allergies: Coded Allergies: No Known Allergies (Unverified , 01/09/19) Triage Vital Signs Vital Signs Date Time Temp Pulse Resp B/P (MAP) Pulse Ox O2 Delivery O2 Flow Rate FiO2 12/19/19 16:43 98.3 86 16 117/74 97 Room Air Vital signs reviewed: Yes (SENTHIL ELY MD) Physical Exam CONSTITUTIONAL Constitutional: Present well-developed, Present well-nourished HENT HENT: Present normocephalic, Present atraumatic, Present oropharynx clear/moist, Present nose normal HENT L/R: Present left TM normal, Present left canal normal, Present right canal normal, Present left ext ear normal, Present right ext ear normal, Present other (SEROUS OTITIS/MILD FLUID BEHIND TM ON RIGHT) EYES Eyes: Reports PERRL, Reports conjunctivae normal, Reports EOM normal NECK Neck: Present ROM normal PULMONARY Pulmonary: Present effort normal, Present breath sounds normal CARDIOVASCULAR Cardiovascular: Present regular rhythm, Present heart sounds normal, Present capillary refill normal, Present normal rate GASTROINTESTINAL Abdominal: Present soft, Present nontender, Present bowel sounds normal GENITOURINARY Genitourinary: Present exam deferred SKIN Skin: Present warm, Present dry MUSCULOSKELETAL Musculoskeletal: Present ROM normal NEUROLOGICAL Neurological: Present alert, Present oriented x 3, Present no gross motor or sensory deficits, Present other (NO NYSTAGMUS); Absent cranial nerve deficit PSYCHOLOGICAL Psychological: Present mood/affect normal, Present judgement normal (SENTHIL ELY MD) Results Laboratory Result Diagram: 12/19/19 1640 Laboratory Laboratory Tests Test 12/19/19 16:40 White Blood Count 9.66 x10e3/uL (4.8-10.8) Red Blood Count 5.21 x10e6/uL (3.6-5.1) Hemoglobin 14.4 g/dL (12.0-16.0) Hematocrit 42.8 % (34.2-44.1) Mean Corpuscular Volume 82.1 fL (81-99) Mean Corpuscular Hemoglobin 27.6 pg (28-32) Mean Corpuscular Hemoglobin Concent 33.6 g/dL (31-35) Red Cell Distribution Width 12.4 % (11.7-14.4) Platelet Count 246 x10e3/uL (140-360) Neutrophils (%) (Auto) 66.9 % (38.7-80.0) Lymphocytes (%) (Auto) 26.0 % (18.0-39.1) Monocytes (%) (Auto) 4.8 % (4.4-11.3) Eosinophils (%) (Auto) 1.1 % (0.0-6.0) Basophils (%) (Auto) 0.6 % (0.0-1.0) Neutrophils # (Auto) 6.5 (2.1-6.9) Lymphocytes # (Auto) 2.5 (1.0-3.2) Monocytes # (Auto) 0.5 (0.2-0.8) Eosinophils # (Auto) 0.1 (0.0-0.4) Basophils # (Auto) 0.1 (0.0-0.1) Absolute Immature Granulocyte (auto 0.06 x10e3/uL (0-0.1) Prothrombin Time 12.7 seconds (11.9-14.5) Prothromb Time International Ratio 0.91 Activated Partial Thromboplast Time 25.0 seconds (23.8-35.5) Lab results reviewed: Yes (SENTHIL ELY MD) Imaging Imaging results reviewed: Yes (SENTHIL ELY MD) Imaging results reviewed: Yes Impressions [place] [address] Patient Name: MARY ANN RAMIREZ MR #: [id number] : 1965 Age/Sex: 54/F Req #: [id number] Adm Physician: Ordered by: SENTHIL ELY MD Report #: [id number] Location: ER Room/Bed: Procedure: [id number] CT/CT BRAIN WO Exam Date: 12/19/19 Exam Time: 1710 REPORT STATUS: Signed EXAMINATION: Head CT HISTORY: Vertigo, dizziness COMPARISON: None. TECHNIQUE: Helical axial images of the head were obtained. Reformatted coronal and sagittal images from the axial data. Dose modulation, iterative reconstruction, and/or weight based adjustment of the mA/kV was utilized to reduce the radiation dose to as low as reasonably achievable. Image quality: Motion/streaking artifact limits the evaluation of the skull base and posterior cranial fossa. FINDINGS: Parenchyma: 1. No abnormal densities. 2. No mass or hemorrhage. No CT evidence of acute territorial vascular insult. Extra-axial spaces:No abnormal density. No extra-axial fluid collections Brain volume: Normal for age. Ventricles: No hydrocephalus or displacement. Arteries: No density suggestive of thrombus. Dural sinuses: No abnormal density. Foramen magnum: No mass, Chiari malformation, or basilar invagination. Sella: Partially empty, mostly CSF filled. Paranasal/mastoid sinuses: Imaged portions unremarkable. Skull/Scalp: No lytic or blastic lesions. No fractures. IMPRESSION: No intracranial abnormalities. Signed by: Dr. Abel Thomas M.D. on 12/19/2019 6:35 PM Dictated By: ABEL THOMAS MD 34 Transcribed By: SIMONE on 12/19/191834 COPY TO: SENTHIL ELY MD~ (BRODY FLORES DO) Procedures 12 Lead ECG Interpretation ECG Interpretation : ECG: ECG 1 [employer]: Interpreted by ED physician Date: Dec 19, 2019 Time: 16:36 Rhythm: sinus rhythm Rate: normal (66) QRS axis: normal ST segments normal: Yes T waves normal: Yes Clinical Impression: normal ECG (SENTHIL ELY MD) Assessment & Plan Medical Decision Making MDM PT WITH H/O VERTIGO X YEARS, WORSE TODAY WITH "PRESSURE IN MY EARS" - CBC, CHEMS, CARDIACS, ECG, CT BRAIN - EVAL FOR ANEMIA, VERTIGO, R/O CENTRAL CAUSE OF VERTIGO, CVA, CEREBRAL BLEED, MASS (SENTHIL ELY MD) Reassessment Reassessment IV FLUIDS, ZOFRAN, PO VALIUM - REPORT TO DR FLORES TO F/U LABS AND CT, RE-ASSESS, AND DISPO (SENTHIL ELY MD) Assessment & Plan Final Impression: (1) Vertigo (BRODY FLORES DO) Depart Disposition: HOME, SELF-CARE Last Vital Signs Date Time Temp Pulse Resp B/P (MAP) Pulse Ox O2 Delivery O2 Flow Rate FiO2 12/19/19 16:43 98.3 86 16 117/74 97 Room Air (SENTHIL ELY MD) Home Meds Reported Medications [Pinaverio/Dimeticona] No Conflict Check 01/09/19 Atorvastatin Calcium (LIPITOR) 20 Mg Tablet, DAILY, #30 TAB 01/09/19 Pantoprazole Sodium* (PROTONIX) 40 Mg Tablet.dr, 40 MG PO, TAB 01/09/19 Metformin Hcl (METFORMIN HCL) 500 Mg Tablet, 500 MG PO BID, #60 TAB 01/09/19 Medications in the ED Sodium Chloride 1,000 ml @ 0 mls/hr Q0M STAT IV Last administered on 12/19/19at 16:56; Admin Dose 999 MLS/HR; Start 12/19/19 at 16:42; Stop 12/19/19 at 16:45; Status DC Ondansetron HCl 4 mg NOW STAT IV Last administered on 12/19/19at 17:05; Admin Dose 4 MG; Start 12/19/19 at 16:55; Stop 12/19/19 at 17:01; Status DC Diazepam 5 mg ONCE ONCE PO Last administered on 12/19/19at 17:05; Admin Dose 5 MG; Start 12/19/19 at 17:00; Stop 12/19/19 at 17:02; Status DC (SENTHIL ELY MD) SENTHIL ELY MD Dec 19, 2019 17:16 BRODY FLORES DO Dec 19, 2019 19:24
--- OUTSIDE RECORDS SUMMARY | 2019-12-19 17:52 | XMS REPORT | Continuity of Care Document ---
Author Author [employer], MARY ANN SCHAFFER [facility] [employer] Information Exchange Address Unknown Phone Unavailable Care Team Providers Care Batch Room Technician Name Role Phone [employer] Unavailable Un available Problems Problem Status Onset Date Classification Date Reported Comments Source ROUTINE Active 08/21/2018 [facility] E66.9 / Z68.31 / E11.9 / E78.6 Active 10/23/2016 [facility] E11.9 DIABETES Active 10/22/2015 [facility] SCREENING MAMMOGRAM Active 09/13/2015 [facility] E11.9 *DR. CONNER BOWMAN ADDRESS: [facility] Active 04/12/2015 [facility] OSTEOPENIA Active 10/08/2014 Condition 10/08/2014 [facility] HEMATURIA, MICROSCOPIC Active 10/08/2014 Condition 10/08/2014 [facility] Microscopic hematuria (disorder) Active 10/08/2014 Problem 06/21/2019 Data migrated from [employer] on . [facility] Osteopenia (disorder) Active 10/08/2014 Problem 06/21/2019 Data migrated from [employer] on . [facility] POSTMENOPAUSAL STATUS A ctive 09/24/2014 [facility] BODY MASS INDEX 29.0-29.9, ADULT Active 09/03/2014 Condition 10/08/2014 [facility] PREVENTIVE HEALTH CARE Active 09/03/2014 Condition 10/08/2014 [facility] HX OF KIDNEY STONE Active 09/03/2014 Condition 10/08/2014 [facility] HYPERLIPIDEMIA Active 09/03/2014 Condition 10/08/2014 [facility] IBS (IRRITABLE BOWEL SYNDROME) Active 09/03/2014 Condition 10/08/2014 [facility] TINNITUS, UNSPECIFIED Active 09/03/2014 Condition 10/08/2014 [facility] OTHER SCREENING MAMMOGRAM Acti ve 09/03/2014 Condition 10/08/2014 [facility] POSTMENOPAUSAL STATUS Active 09/03/2014 Condition 10/08/2014 [facility] DYSURIA Active 09/03/2014 Condition 10/08/2014 [facility] SCREENING FOR COLON CANCER Act stephen 09/03/2014 Condition 10/08/2014 [facility] SMOKER Active 09/03/2014 Condition 10/08/2014 [facility] History of calculus of kidney (situation) Active 09/03/2014 Problem 06/21/2019 Data migrated from [employer] on 11/04/14. [facility] Smoker (finding) Active 09/03/2014 Problem 06/21/2019 Data migrated from [employer] on . [facility] Body mass index 30+ - obesity (finding) Active Problem 06/21/2019 [facility] Depressive disorder (disorder) Active Problem [facility] Gastroesophageal reflux disease (disorder) Active Problem 06/21/2019 [facility] Hypertriglyceridemia (disorder) Active Problem [facility] Diabetes mellitus type 2 (disorder) Active Problem [facility] Vitamin D deficiency (disorder) Active Problem [facility] Fatigue (finding) Active Problem 10/25/2017 [facility] Generalized aches and pains (finding) Active Problem [facility] Irritable colon (disorder) Act stephen Problem [facility] Hyperlipidemia (disorder) Acti ve Problem 04/2016 [facility] Obesity (disorder) Active Problem 10/28/2016 [facility] Renal impairment (disorder) Ac tive Problem 04/2016 [facility] Pure hyperglyceridemia (disorder) Active Problem [facility] Medications Medication Details Route Status Patient Instructions Ordering Provider Order Date Source FreeStyle Bal Sensor 3 ea, M ISC, Q10day, # 27 ea, Not insulin dependent, Does not use insulin pump, Last DM eval date 12/29/17, 3 Refill(s), Pharmacy: [facility]/pharmacy #[id number] Active 07/19/2018 [facility] FreeStyle Bal [place] , # 1 e a, Not insulin dependent, Does not use insulin pump, Last DM eval date 12/29/17, 0 Refill(s), Pharmacy: [facility][id number] Active 07/19/2018 [facility] metFORMIN 500 mg oral tablet, extended release See Instructions, TAKE 1 TABLET TWICE DAILY WITH MEALS, # 180 tab, 1 Refill(s), [id number] Active 05/14/2018 [facility] losartan 25 mg oral tablet 12. 5 mg = 0.5 tab, PO, Daily, # 45 tab, 1 Refill(s), [id number] Active 04/22/2018 [facility] Sulfamethoxazole 800 MG / Trimethoprim 1 60 MG Oral Tablet 1 tab, PO, BID, X 7 day, # 14 tab, 0 Ref ill(s), [id number] No Longer Active 04/09/2018 [facility] losartan 25 mg oral tablet 12. 5 mg = 0.5 tab, PO, Daily, X 90 day, # 45 tab, 1 Refill(s), [id number] No Longer Active 01/24/2018 [facility] metFORMIN 500 mg oral tablet, extended release 500 mg = 1 tab, PO, BID-Meals, # 180 tab, 1 Refill(s), [id number] Active 07/20/2017 [facility] MegaKrill 0 Refill(s) Active 07/19/2017 [facility] Group meclizine 25 mg oral tablet 25 mg = 1 tab, PO, TID, PRN for dizziness, X 21 day, # 60 tab, 0 Refill(s), [id number] No Longer Active 07/19/2017 [facility] Vitamin D3 See Instructions, 0 Refill(s) Active 07/19/2017 [facility] garlic oral capsule 0 Refill(s) Active 07/19/2017 [facility] meclizine 25 mg oral tablet 25 mg = 1 tab, PO, TID, PRN for dizziness, # 60 tab, 0 Refill(s), [id number] No Longer Active 07/17/2017 [facility] ATORVASTATIN CALCIUM 20 MG TABS Take one tablet by mouth once a day Active 10/08/2014 [facility] DIALYVITE 800/ULTRA D TABS Abimael e one tablet by mouth once a day Active 10/08/2014 [facility] DICYCLOMINE HCL 10 MG CAPS Abimael e one capsule by mouth four times daily. Active 09/03/2014 [facility] CIPROFLOXACIN HCL 500 MG TABS Take one tablet every 12 hours No Longer Active 09/03/2014 [facility] Allergies, Adverse Reactions, Alerts Substance Category Reaction Severity Reaction type Status Date Reported Comments Source No Known Medication Allergies Assertion Drug aller gy [facility] Immunizations Immunization Date Given Site Status Last Updated Comments Source influenza virus vaccine, inactivated<sup>1</sup> 01/24/2018 Left Deltoid completed [facility] Result Comment: Patient waited 15 minutes, no reaction noted. [facility] pneumococcal 23-valent vaccine<sup>3</sup> 07/19/2017 Left Deltoid completed [facility] Result Comment: Patient waited 15 minutes, no reaction noted. [facility] pneumococcal 23-valent vaccine<sup>1</sup> 07/19/2017 Left Deltoid completed [facility] Result Comment: Patient waited 15 minutes, no reaction noted. [facility] influenza virus vaccine, inactivated<sup>2</sup> 05/22/2017 Left Deltoid completed [facility] Result Comment: Patient waited 15 minutes, no reaction noted. [facility] influenza virus vaccine, inactivated 02/16/2016 Left Deltoid completed [facility] Results Order Name Results Value Reference Range Date Interpretation Comments Source Chemistry TSH 1.110 0.360 - 3.740 09/03/2014 [facility] Chemistry CHOLESTEROL 272 - 199 09/03/2014 [facility] Chemistry TRIGLYCERIDE 373 - 149 09/03/2014 [facility] Chemistry HDL 41 >=61 09/03/2014 [facility] Chemistry LDL 156 - 99 09/03/2014 [facility] Chemistry SODIUM 139 MEQ/L 135 - 145 09/03/2014 [facility] Chemistry POTASSIUM 3.7 MEQ/L 3.5 - 5.1 09/03/2014 [facility] Chemistry CREATININE 0.7 0.5 - 1.4 09/03/2014 [facility] Chemistry BUN 14 7 - 22 09/03/2014 [facility] Chemistry BUN/CREAT 20 6 - 25 09/03/2014 [facility] Chemistry ALBUMIN 4.2 3.5 - 5.0 09/03/2014 [facility] Chemistry CALCIUM 9.7 8.5 - 10.5 09/03/2014 [facility] Chemistry SGPT (ALT) 43 0 - 65 09/03/2014 [facility] Chemistry SGOT (AST) 18 0 - 37 09/03/2014 [facility] Chemistry ALK PHOS 116 39 - 136 09/03/2014 [facility] Hematology HGB 15.5 12.0 - 16.0 09/03/2014 [facility] Hematology HCT 47.0 36.0 - 48.0 09/03/2014 [facility] Hematology PLATELETS 239 K/CMM 133 - 450 09/03/2014 [facility] Urinalysis UA COLOR Yellow 09/03/2014 [facility] Urinalysis BACTERIA URN Occas ional 09/03/2014 [facility] Pathology Reports No Data Provided for This Section Diagnostic Reports Report Value Date Source Breast Mammo Scrn [place] w sabrina incl CAD MA BILATERAL DIGITAL SCREENING MAMMOGRAM 3D/2D WITH CAD: 08/30/2018 CLINICAL: /Routine. Current study was evaluated with a Computer Aided Detection (CAD) system. COMPARISON:Comparison is made to exams dated: 09/17/2015 mammogram - [facility], 04/08/2011 mammogram, and 04/10/2012 mammogram. TECHNIQUE: Digital Breast Tomosynthesis was performed and utilized for Interpretation. Volofy Version 1.3 was utilized for computer aided [...] is recommended.(08/31/2019) This exam was interpreted at [id number] for [facility]. Rodolfo mayorga/penrad:09/11/2018 15:30:41 Facialist(s): Mallory Sanchez, [facility] letter sent: BI-RADS 1/2 Mammogram BI-RADS: 2 Benign 08/30/2018 [facility] Digital Mammo Screening [place] - DIGITAL MAMMO SCREENING [place] BILATERAL DIGITAL SCREENING MAMMOGRAM WITH CAD: 09/17/2015 CLINICAL: Routine. Current study was evaluated with a Computer Aided Detection (CAD) system. Comparison is made to exams dated: 04/10/2012 mammogram and 04/08/2011 mammogram. Outside films from the [facility] have been requested for recent priors. There are scattered fibroglandular densities in both breasts. No significant masses, calcifications, or other findings are seen in either breast. There has been no significant interval change. IMPRESSION: NEGATIVE There is no mammographic evidence of malignancy. A 1 year screening mammogram is recommended. Lynn Mejia M.D. ap/penrad:09/30/2015 13:25:42 Facialist: Mallory Sanchez, [facility] This exam was dictated and interpreted by [id number] for [facility]. letter sent: Normal exam Mammogram BI-RADS: 1 Negative 09/17/2015 [facility] Bone Density Scan PROCEDURE: Bone Density Scan [...] 1. Normal bone mineral density of the donita mbar spine. 2. Osteopenia of the left hip. SL: 16 09/28/2014 [facility] Consultation Notes No Data Provided for This [...] 149.86 cm 07/19/2017 [facility] Weight 70 0 07/19/2017 [facility] Respitory Rate 16 10/08/2014 [facility] Height 60 0 10/08/2014 [facility] Weight 143 10/08/2014 Medical [...] Rate 58 09/03/2014 [facility] Height 60 0 09/03/2014 [facility] Encounters Location Location Details Encounter Type Encounter Number Reason For Visit Attending Provider ADM Date DC Date Status Source [facility] Lab Report [id number] Janet Wang MD 09/03/2014 09/03/2014 Medical [facility] Office Visit [id number] Janet Wang MD 09/03/2014 09/03/2014 Medical [facility] Outpatient [id number] Janet Wang 09/28/2014 09/29/2014 [facility] Office Visit [id number] Janet Wang MD 10/08/2014 10/08/2014 [facility] Outpatient [id number] JANET WANG 02/04/2015 Active [facility] Outpatient [id number] CONNER BOWMAN 03/30/2015 Active [facility] Outpatient [id number] JANET WANG 09/09/2015 Active [facility] Outpatient [id number] Janet Wang 09/17/2015 09/18/2015 [facility] OP Recurring [id number] Janet Wang 10/22/2015 11/21/2015 [facility] Outpatient [id number] JANET WANG 12/10/2015 Active [facility] [place] Outpatient [id number] CHELSEA JASON 02/16/2016 Active [facility] Outpatient [id number] CHELSEA HOUSTONH 06/14/2016 [facility] [id number] JANET WANG 07/17/2016 Active [facility] [place] Outpatient [id number] CHELSEA HOUSTONH 09/11/2016 Active [facility] Recurring [id number] Chelsea Houstonh 09/26/2016 10/26/2016 [facility] Outpatient [id number] CHELSEA HOUSTONH 01/26/2017 [facility] [id number] NURSE VISIT 05/22/2017 Active [facility] Phone Message [id number] 07/16/2017 07/18/2017 [facility] Outpatient [id number] CHELSEA JASON 07/19/2017 Active [facility] Primary Care [facility] Outpatient [id number] Janet Wang 07/19/2017 07/20/2017 [facility] Outpatient [id number] CHELSEA JASON 01/24/2018 Active [facility] Primary Care [facility] Outpatient [id number] Chelsea Jason 01/24/2018 01/25/2018 [facility] Outpatient [id number] CHELSEA JASON 04/09/2018 Active [facility] Primary Care [facility] Outpatient [id number] Chelsea Jason 04/09/2018 04/10/2018 [facility] Phone Message [id number] 05/14/2018 05/16/2018 [facility] Phone Message [id number] 07/18/2018 07/20/2018 [facility] Outpatient [id number] Chelsea Jason 08/21/2018 Active [facility] Outpatient [id number] Janet Wang 08/21/2018 08/22/2018 [facility] Outpatient [id number] Chelsea Jason 08/30/2018 08/31/2018 [facility] [place] Message [id number] 05/09/2019 05/11/2019 [facility] [place] Message [id number] 06/17/2019 06/19/2019 [facility] Procedures Procedure Code Date Perfomer Comments Source Colonoscopy<sup>1, 2</sup> [id number] 37282 03/08/2017 Normal Next one [address] Leone2 sessile poylps, 5 year repeat [facility] Esophagogastroduodenoscopy<sup>3</sup> [id number] 02/28/2017 gastritis, hiatal hernia, reflux esophagitis [facility] Mammogram [id number] 09/17/2015 [facility] Diabetic foot examination 4011 52394 09/09/2015 [facility] Bone density scan<sup>4</sup> 134342080 09/28/2014 Osteopenia [facility] Bone density scan<sup>1</sup> 056571856 09/28/2014 Osteopenia [facility] smoking/tobacco cessation, patient educa tion and counseling 14 09/03/2014 yes [facility] Colonoscopy<sup>2</sup> 706404 05/31/2013 Normal Next one [address] Leone [facility] Percutaneous extraction of kidney stone with fragmentation procedure<sup>5</sup> [id number] 04/30/[address]ivo [facility] Percutaneous extraction of kidney stone with fragmentation procedure<sup>3</sup> [id number] 04/30/[address] Olivo [facility] Total hysterectomy<sup>6</sup> [id number] 04/30/2004 oopherectomy due to fibroids [facility] Total hysterectomy<sup>4</sup> 098348925 04/30/2004 oopherectomy due to fibroids [facility] Hysterectomy<sup>4</sup> 33710 6002 04/30/2004 oopherectomy due to fibroids [facility] Eye operation<sup>7</sup> 3733 96677 04/30/1999 lasix for both eyes [facility] Eye operation<sup>5</sup> 3733 18343 04/30/1999 lasix for both eyes [facility] Assessment and Plan No Data Provided for [...] Frequency 10 cigs/day; entered on: 08/21/18 07/19/2017 [facility] Social History TypeResponse Alcohol Past, Type Beer. Frequency: 1-2 times per month. Employment/School Status: Retired. Exercise Exercise duration: 60. Exercise frequency: 3-4 times/week. Exercise type: meir. Smoking Status Current every day smoker; Type: Cigarettes; Lives with someone who smokes; Exposure to Tobacco Smoke self; Cigarette Smoking Last 365 Days Yes; Reg Smoking Cessation Counseling Yes; Tobacco use per day: 10; Other Tobacco Frequency 10 cigs/day; entered on: 08/21/18 06/14/2016 [facility] Family History No Data Provided for This Section Advance Directives No Data Provided for This Section Functional Status No Data Provided for This Section
--- OUTSIDE RECORDS SUMMARY | 2019-12-19 17:52 | XMS REPORT | Continuity of Care Document ---
Author Author [facility] t Organization [facility] Address [address] [place] [address] Phone Unavailable Care Team Providers Care Salesperson Parts Name Role Phone CELY BRADEN Attphys Unavailable Valentina Pacheco Attphys Conner Moreno Attphys Problems Condition Name Condition Details Condition Category Status Onset Date Resolution Date Last Treatment Date Treating Clinician Comments Source ROUTINE ROUT INE Active 08/21/2018 [facility] Active 2018-08-21 00:00:00 2018-08-30 15:09:00 Genevieve San E66.9 / Z68.31 / E11.9 / E78.6 E66.9 / Z68.31 / E11.9 / E78.6 Active 10/23/2016 [facility] Active 2016-10-23 00:00:0 0 2016-12-04 15:56:00 Genevieve San E11.9 DIABETES E11. 9 DIABETES Active 10/22/2015 [facility] Active 2015-10-22 00:00:00 2015-10-22 09:42:00 Genevieve San SCREENING MAMMOGRAM SCRE ENING MAMMOGRAM Active 09/13/2015 [facility] Active 2015-09-13 00:00:00 2015-09-17 15:04:00 Genevieve San E11.9 *DR. CONNER BOWMAN ADDRESS: [facility] E11.9 *DR. CONNER BOWMAN ADDRESS: [facility] Active 04/12/2015 [facility] A ctive 2015-04-12 00:00:00 2015-05-20 16:35:00 M miguel San OSTEOPENIA OSTE OPENIA Active 10/08/2014 Condition 10/08/2014 [facility] Condition Active 2014-10-08 00:00:00 2014-10-08 1 0:29:51 Genevieve San HEMATURIA, MICROSCOPIC MARYLOU TURIA, MICROSCOPIC Active 10/08/2014 Condition 10/08/2014 [facility] Condition Active 2014-10-08 00:00:00 2014-10-08 10:29:51 Genevieve San Microscopic hematuria (disorder) Microscopic hematuria (disorder) Active 10/08/2014 Problem 06/21/2019 Data migrated from [email or web address] on 11/04/14. [facility] Problem Active 2014-10-08 00:0 0:00 2019-06-21 01:22:21 Genevieve San Osteopenia (disorder) Oste openia (disorder) Active 10/08/2014 Problem 06/21/2019 Data migrated from [email or web address] on 11/04/14. [facility] Problem Active 2014-10-08 00:00:00 2019-06-21 01:22:21 Genevieve San V49.81 POSTMENOPAUSAL STATUS V 49.81 POSTMENOPAUSAL STATUS Active 09/24/2014 [facility] Diagnosis Active 2014-09-24 00:00: 00 2014-09-28 09:52:00 Genevieve San BODY MASS INDEX 29.0-29.9, ADULT BODY MASS INDEX 29.0- 29.9, ADULT Active 09/03/2014 Condition 10/08/2014 [facility] Condition Active 2014-09-03 00:00:00 2014-10-08 10:29:51 Genevieve San PREVENTIVE HEALTH CARE PREV ENTIVE HEALTH CARE Active 09/03/2014 Condition 10/08/2014 [facility] Condition Active 2014-09-03 00:00:00 2014-10-08 10:29:51 Genevieve San HX OF KIDNEY STONE HX O F KIDNEY STONE Active 09/03/2014 Condition 10/08/2014 [facility] Condition Active 2014-09-03 00:00:00 2014-10-08 10:29:51 Genevieve San HYPERLIPIDEMIA HYPE RLIPIDEMIA Active 09/03/2014 Condition 10/08/2014 [facility] Condition Active 2014-09-03 00:00:00 2014-10-08 10:29:51 Genevieve San IBS (IRRITABLE BOWEL SYNDROME) IBS (IRRITABLE BOWEL SYNDROME) Active 09/03/2014 Condition 10/08/2014 [facility] Condition Active 2014-09-03 00:00:00 2014-10-08 10:29:51 Nadiya San TINNITUS, UNSPECIFIED TINN ITUS, UNSPECIFIED Active 09/03/2014 Condition 10/08/2014 [facility] Condition Active 2014-09-03 00:00:00 2014-10-08 10:29:51 Genevieve San OTHER SCREENING MAMMOGRAM OTHE R SCREENING MAMMOGRAM Active 09/03/2014 Condition 10/08/2014 [facility] Condition Active 2014-09-03 00:00:00 2014-10-08 10:29:51 Genevieve San POSTMENOPAUSAL STATUS POST MENOPAUSAL STATUS Active 09/03/2014 Condition 10/08/2014 [facility] Condition Active 2014-09-03 00:00:00 2014-10-08 10:29:51 Genevieve San DYSURIA DYSU BRADLEY Active 09/03/2014 Condition 10/08/2014 [facility] Condition Active 2014-09-03 00:00:00 2014-10-08 10:29:51 Genevieve San SCREENING FOR COLON CANCER SCR EENING FOR COLON CANCER Active 09/03/2014 Condition 10/08/2014 [facility] Condition Active 2014-09-03 00:00:00 2014-10-08 10:29:51 Genevieve San SMOKER SMOK ER Active 09/03/2014 Condition 10/08/2014 [facility] Group Condition Active 2014-09-03 00:00:00 2014-10-08 10:29:51 Genevieve San History of calculus of kidney (situation) History of calculus of kidney (situation) Active 09/03/2014 Problem 06/21/2019 Data migrated from [email or web address] on 11/04/14. [facility] Problem Act stephen 2014-09-03 00:00:00 2019-06-21 01:22:21 [facility] [address] Smoker (finding) Smok er (finding) Active 09/03/2014 Problem 06/21/2019 Data migrated from [email or web address] on 11/04/14. [facility] Problem Active 2014-09-03 00:00:00 2019-06-21 01:22:21 Genevieve San Body mass index 30+ - obesity (finding) Body mass index 30+ - obesity (finding) Active Problem 06/21/2019 [facility] Problem Active 2019-06-21 01:22:21 Genevieve San Depressive disorder (disorder) Depressive disorder (disorder) Active Problem 06/21/2019 [facility] Problem Active 2019-06-21 01:22:21 Genevieve San Gastroesophageal reflux disease (disorder) Gastroesophageal reflux disease (disorder) Active Problem 06/21/2019 [facility] Group,[facility] Problem Active 2019-06-21 01:22:21 Genevieve San Hypertriglyceridemia (disorder) Hypertriglyceridemia (disorder) Active Problem 06/21/2019 [facility] Group,[facility] Problem Active 2019-06-21 01:22:21 Genevieve San Diabetes mellitus type 2 (disorder) Diabetes mellitus type 2 (disorder) Active Problem 06/21/2019 Medical [facility] Problem Active 2019-06-21 01:22:21 Abdoulaye San Vitamin D deficiency (disorder) Vitamin D deficiency (disorder) Active Problem 06/21/2019 [facility] Group,[facility] Problem Active 2019-06-21 01:22:21 Genevieve San Fatigue (finding) Fati baljeet (finding) Active Problem 10/25/2017 [facility] Problem Active 2017-10-25 13:52:42 Genevieve San Generalized aches and pains (finding) Generalized aches and pains (finding) Active Problem 10/25/2017 [facility] Problem Active 2017-10-25 13:52:42 Genevieve San Irritable colon (disorder) Irr itable colon (disorder) Active Problem 10/25/2017 [facility] Group Problem Active 2017-10-25 13:52:42 [facility] [address] Hyperlipidemia (disorder) Hype rlipidemia (disorder) Active Problem 10/28/2016 [facility] Problem Active 2016-10-28 00:2 3:28 Genevieve San Obesity (disorder) Obes ity (disorder) Active Problem 10/28/2016 [facility] Problem Active 2016-10-28 00:23:28 Genevieve San Renal impairment (disorder) Re nal impairment (disorder) Active Problem 10/28/2016 [facility] Problem Active 2016-10-28 00:23:28 Genevieve San Pure hyperglyceridemia (disorder) Pure hyperglyceridemia (disorder) Active Problem 11/23/2015 [facility] Problem Active 2015-11-23 00:10:04 Genevieve San Allergies, Adverse Reactions, Alerts Allergy Name Allergy Type Status Severity Reaction(s) Onset Date Inacti ve Date Treating Clinician Comments Source No Known Medication Allergies No Known Medication Allergies Active Genevieve San Social History Social Habit Start Date Stop Date Quantity Comments Source Social History 2016-06-14 16:53:38 2016-06-14 16:53:38 [facility] [address] Medications Ordered Medication Name Filled Medication Name Start Date Stop Da te Current Medication? Ordering Clinician Indication Dosage Frequency Signature (SIG) Comments Components Source FreeStyle Bal Sensor 2018-07-19 13:10:00 Yes 3 ea, MISC, Q10day, # 27 ea, Not insulin dependent, Does not use insulin pump, Last DM eval date 12/29/17, 3 Refill(s), [id number] FreeStyle Bal Mitchell 2018-07-19 13:10:00 Yes , # 1 ea, Not insulin dependent, Does not use insulin pump, Last DM eval date 12/29/17, 0 Refill(s), [id number] mg oral tablet, extended release 2018-05-14 17:24: 00 Yes See Instructions, TAKE 1 TAB LET TWICE DAILY WITH MEALS, # 180 tab, 1 Refill(s), Pharmacy: [id number] losartan 25 mg oral tablet 2018-04-22 14:39:02 Yes 12.5 mg = 0.5 tab, PO, Daily, # 45 tab, 1 Refill(s), Pharmacy: [facility] #[id number] Sulfamethoxazole 800 MG / Trimethoprim 160 MG Oral Tablet 2018-04-09 19:47:00 No 1 tab, PO, BID , X 7 day, # 14 tab, 0 Refill(s), Pharmacy: [facility] #[id number] losartan 25 mg oral tablet 2018-01-24 14:19:00 No 12.5 mg = 0.5 tab, PO, Daily, X 90 day, # 45 tab, 1 Refill(s), Pharmacy: [facility] #[id number] metFORMIN 500 mg oral tablet, extended release 2017-07-20 13:22: 00 Yes 500 mg = 1 tab, PO, BID-Meal s, # 180 tab, 1 Refill(s), Pharmacy: [facility] #[id number] MegaKrill 2017-07-19 14:12:00 Yes 0 Refill(s ) [facility] meclizine 25 mg oral tablet 2017-07-19 14:08:21 No 25 mg = 1 tab, PO, TID, PRN for dizziness, X 21 day, # 60 tab, 0 Refill(s), Pharmacy: [id number] Genevieve [facility] Vitamin D3 2017-07-19 13:42:00 Yes S ee Instructions, 0 Refill(s) Genevieve San garlic oral capsule 2017-07-19 13:42:00 Yes 0 Refill(s) Genevieve San meclizine 25 mg oral tablet 2017-07-17 11:09:00 No 25 mg = 1 tab, PO, TID, PRN for dizziness, # 60 tab, 0 Refill(s), Pharmacy: [id number] Genevieve San ATORVASTATIN CALCIUM 20 MG TABS 2014-10-08 00:00:00 Yes Take one tablet by mouth once a day Genevieve kilgore DIALYVITE 800/ULTRA D TABS 2014-10-08 00:00:00 Yes Take one tablet by mouth once a day Genevieve San DICYCLOMINE HCL 10 MG CAPS 2014-09-03 00:00:00 Yes Take one capsule by mouth four times daily. [facility] Ashtyn kilgore CIPROFLOXACIN HCL 500 MG TABS 2014-09-03 00:00:00 No Take one tablet every 12 hours [facility] Vital Name Observation Time Observation Value Comments Source Temperature Oral (F) 2018-08-21 13:00:00 98.2 F [facility] [address] BMI Calculated 2018-08-21 13:00:00 [facility] [address] Weight 2018-08-21 13:00:00 [facility] 2018-08-21 [facility] 2018-08-21 13:00:00 [facility] Height 2018-08-21 13:00:00 149.86 cm [facility] Systolic (mm Hg) 2018-08-21 13:00:00 Les rial [place] Diastolic (mm Hg) 2018-08-21 13:00:00 [facility] [place] Temperature Oral (F) 2018-04-09 19:30:00 98.2 F [facility] [address] Weight 2018-04-09 19:30:00 [facility] BMI Calculated 2018-04-09 19:30:00 [facility] [address] Height 2018-04-09 19:30:00 149.86 cm [facility] [place] Systolic (mm Hg) 2018-04-09 19:30:00 Les rial [place] Diastolic (mm Hg) 2018-04-09 19:30:00 [facility] [address] Respitory Rate 2018-04-09 19:30:00 [facility] [place] Heart Rate 2018-04-09 19:30:00 [facility] Weight 2018-01-24 13:48:00 [facility] Height 2018-01-24 13:48:00 149.86 cm [facility] [place] BMI Calculated 2018-01-24 13:48:00 [facility] [address] Temperature Oral (F) 2018-01-24 13:48:00 98.2 F [facility] [place] Respitory Rate 2018-01-24 13:48:00 [facility] [place] Heart Rate 2018-01-24 13:48:00 [facility] [place] Systolic (mm Hg) 2018-01-24 13:48:00 Les rial [address] Diastolic (mm Hg) 2018-01-24 13:48:00 [facility] [place] Respitory Rate 2017-07-19 13:37:00 [facility] [place] Heart Rate 2017-07-19 13:37:00 [facility] [address] Systolic (mm Hg) 2017-07-19 13:37:00 Les rial [address] Diastolic (mm Hg) 2017-07-19 13:37:00 [facility] [address] BMI Calculated 2017-07-19 13:37:00 [facility] [address] Temperature Oral (F) 2017-07-19 13:37:00 98.0 F [facility] [address] Height 2017-07-19 13:37:00 149.86 cm [facility] [address] Weight 2017-07-19 13:37:00 [facility] Respitory Rate 2014-10-08 15:29:51 [facility] [place] Height 2014-10-08 15:29:51 [facility] [address] Weight 2014-10-08 15:29:51 [facility] [place] Systolic (mm Hg) 2014-10-08 15:29:51 Les rial [place] Diastolic (mm Hg) 2014-10-08 15:29:51 [facility] [address] Heart Rate 2014-10-08 15:29:51 [facility] [address] Temperature Oral (F) 2014-10-08 15:29:51 97.1 F [facility] Weight 2014-09-03 14:15:11 [facility] [place] Respitory Rate 2014-09-03 14:15:11 [facility] [address] Systolic (mm Hg) 2014-09-03 14:15:11 [facility] [address] Diastolic (mm Hg) 2014-09-03 14:15:11 Demi Chamorroann Temperature Oral (F) 2014-09-03 14:15:11 98.0 F [facility] [place] Heart Rate 2014-09-03 14:15:11 [facility] [address] Height 2014-09-03 14:15:11 [facility] [address] Procedures Procedure Date / Time Performed Performing Clinician Brock arce Colonoscopy<sup>1, 2</sup> 2017-03-08 06:00:00 Nadiya San Esophagogastroduodenoscopy<sup>3</sup> 2017-02-28 05:00:00 Genevieve San Mammogram 2015-09-17 05:00:00 [facility] puentes Diabetic foot examination 2015-09-09 05:00:00 Pr sariahlisa [address] Bone density scan<sup>4</sup> 2014-09-28 05:00:00 [facility] [place] smoking/tobacco cessation, patient education and counseling 2014-09-03 14:15:11 [facility] [address] Colonoscopy<sup>2</sup> 2013-05-31 00:00:00 Les San Percutaneous extraction of kidney stone with fragmentation procedure<sup>5</sup> 2011-04-30 00:00:00 [facility] [address] Total hysterectomy<sup>6</sup> 2004-04-30 00:00:00 [facility] [place] Hysterectomy<sup>4</sup> 2004-04-30 00:00:00 [facility] lloyd San Eye operation<sup>7</sup> 1999-04-30 00:00:00 Pr pablo San Encounters Start Date/Time End Date/Time Encounter Type Admission Type [facility] Care Department Encounter ID Source 2019-06-17 15:12:40 2019-06-18 23:59:59 Outpatient [facility] [id number] 2019-05-09 07:18:45 2019-05-10 23:59:59 Outpatient [facility] [id number] 2018-08-30 15:09:00 2018-08-30 23:59:00 Outpatient Valentina Pacheco [facility] [id number] 2018-08-30 15:09:00 2018-08-30 15:09:00 Outpatient [facility] [address] [facility] 2018-08-21 08:00:00 2018-08-21 23:59:59 Outpatient Eli Moreno [facility] [id number] 2018-07-18 17:00:00 2018-07-19 23:59:59 Outpatient [facility] [id number] 2018-05-14 11:17:00 2018-05-15 23:59:59 Outpatient [facility] [id number] 2018-04-09 13:15:00 2018-04-09 23:59:59 Outpatient Valentina Pacheco [facility] [id number] 2018-01-24 09:00:00 2018-01-24 23:59:59 Outpatient Valentina Pacheco [facility] [id number] 2017-07-19 09:00:00 2017-07-19 23:59:59 Outpatient Eli Moreno [facility] [id number] 2017-07-16 14:30:00 2017-07-17 23:59:59 Outpatient [facility] [id number] 2016-09-26 14:23:00 2016-10-25 23:59:00 Outpatient Valentina Pacheco [facility] [id number] 2015-10-22 09:40:00 2015-11-20 23:59:00 Outpatient Eli Moreno [facility] [id number] 2015-09-17 14:55:00 2015-09-17 23:59:00 Outpatient Eli Moreno [facility] [id number] 2014-09-28 09:44:00 2014-09-28 23:59:00 Outpatient Eli MorenoIE [facility] [id number] Results Test Description Test Time Test Comments Results Result Comments Source HEPTOBILIARY W PHARM 2019-03-26 18:23:00 [place] [address] Patient Name: MARY ANN RAMIREZ MR #: [id number] : 1965 Age/Sex: 54/F Req #: [id number] Adm Physician: Ordered by: CELY BRADEN MD Report #: [id number] Location: [place] Room/Bed: Procedure: [id number] NM/HEPTOBILIARY W PHARM Exam Date: 03/26/19 Exam Time: 0900 REPORT STATUS: Signed Hepatobiliary Scan with Gallbladder Ejection Fraction Clinical information: RUQ pain Report: Following intravenous administration of 6.6 millicuries of Tc-99m mebrofenin, dynamic images of the abdomen in the anterior projection were obtained through 60 minutes. Sincalide (CCK analog) 1.4 micrograms was administered intravenously over 30 minutes with additional imaging for determination of gallbladder ejection fraction. Perfusion to the liver is normal. Extraction of tracer from the blood pool by the liver parenchyma is normal. Tracer is seen promptly within the biliary tract. The gallbladder begins to fill by 7 minutes post-injection of tracer and fills adequately. Tracer is seen in the small bowel during the sincalide infusion. The gallbladder ejection fraction with administration of sincalide is 87% (normal greater than 40%). Impression: 1. Filling of the gallbladder excludes the diagnosis of acute cystic duct obstruction/acute cholecystitis. 2. Normal gallbladder ejection fraction of 87% does not support the clinical diagnosis of chronic cholecystitis/gallbladder dyskinesia. Signed by: Dr. Court Mccoy M.D. on 03/26/2019 6:25 PM Dictated By: COURT MCCOY MD 24 Transcribed By: SIMONE on 03/26/191824 COPY TO: CELY RBADEN MD GALLBLADDER 2019-03-12 08:31:00 [place] [address] Patient Name: MARY ANN RAMIREZ MR #: [id number] : 1965 Age/Sex: 54/F Req #: [id number] Adm Physician: Ordered by: CELY BRADEN MD Report #: [id number] Location: Room/Bed: Procedure: [id number] US/US GALLBLADDER Exam Date: Exam Time: REPORT STATUS: Signed EXAM: Right upper quadrant abdominal ultrasound INDICATION: Right upper quadrant pain COMPARISON: None. TECHNIQUE: Transverse and longitudinal images of the right upper quadrant abdomen were obtained FINDINGS: Liver: Size: 14.1 cm in the right midclavicular line, normal Appearance: Increased echogenicity, smooth contour Mass: No focal masses Gallbladder: No gallbladder distension, pericholecystic fluid, wall thickening, stone, or reported sonographic Huff's sign. Gallbladder wall measures 2 mm . Bile Ducts: Intrahepatic Ducts: No dilatation Extrahepatic Ducts: Common bile duct measures 3 mm, no dilatation Pancreas: Visualized portions of the pancreatic head, neck and proximal body are normal. Kidney: The right kidney measures 11.4 cm without evidence of hydronephrosis or stone. Vessels: Aorta: Visualized portions are normal Inferior Vena Cava: Visualized portions are normal Main Portal Vein: 0.9 cm, normal size with hepatopetal flow. Free Fluid: No ascites or pleural effusion IMPRESSION: Hepatic steatosis. No cholelithiasis or sonographic evidence of cholecystitis. Signed by: Zenon Gudino MD on 03/12/2019 8:32 AM Dictated By: ZENON GUDINO MD 1 Transcribed By: SIMONE on 03/12/19831 COPY TO: CELY BRADEN MD SCR MAMM BILATERAL TOBIAS CAD DIGITAL 2019-02-17 11:13:55 - SCR MAMM BILATERAL TOBIAS CAD DIGITALBILATERAL DIGITAL SCREENING MAMMOGRAM 3D/2D WITH CAD: 02/14/2019CLINICAL: Asymptomatic. Digital breast tomosynthesis was performed in addition to routine CC and MLO views. Current mammographic images were evaluated by either a VuCOMP M-Vu or a Hologic ImageChecker CAD (computer aided detection system). Comparison is made to exams dated 04/10/2012 mammogram, mammogram, and [facility] There are scattered fibroglandular tissues in both breasts. No suspicious mass, architectural distortion, malignant type calcification, or lymph node abnormality detected. Breast architecture is stable compared to prior exams.IMPRESSION: NEGATIVEThere is no mammographic evidence of malignancy. Resume annual screening mammography in one year. Ara Swan M.D. yaq/penrad:02/17/2019 11:13:55 Custom Van Converter: Payal [place], [facility] BIRADS 1-2 Normal Mammogram BI-RADS: 1 Negative SCR MAMM BILATERAL TOBIAS CAD DIGITAL 2019-02-17 11:13:55 - SCR MAMM BILATERAL TOBIAS CAD DIGITALBILATERAL DIGITAL SCREENING MAMMOGRAM 3D/2D WITH CAD: 02/14/2019CLINICAL: Asymptomatic. Digital breast tomosynthesis was performed in addition to routine CC and MLO views. Current mammographic images were evaluated by either a VuCOMP M-Vu or a Hologic ImageChecker CAD (computer aided detection system). Comparison is made to exams dated 04/10/2012 mammogram, mammogram, and 01/08/2010 [facility] There are scattered fibroglandular tissues in both breasts. No suspicious mass, architectural distortion, malignant type calcification, or lymph node abnormality detected. Breast architecture is stable compared to prior exams.IMPRESSION: NEGATIVEThere is no mammographic evidence of malignancy. Resume annual screening mammography in one year. Ara Swan M.D. yaq/penrad:02/17/2019 11:13:55 Custom Van Converter: Payal [place], [facility]-letter sent: BIRADS 1-2 Normal Mammogram BI-RADS: 1 Negative SCR MAMM BILATERAL TOBIAS CAD DIGITAL 2019-02-17 11:13:55 AMENDMENT: 03/05/2019 Ara Swan M.D. ADDENDUM:Previous studies from 08/30/2018, 09/17/2015, and 04/10/2012 have been obtained and reviewed.There has been no significant interval change. Therefore, findings and recommendations remain the same.Amended BI-RADS: 1 Negative letter sent: Normal Comparison Completed Chemistry 2014-09-03 16:58:00 1.110 [facility] [place] Chemistry 2014-09-03 16:58:00 272 [facility] [place] Chemistry 2014-09-03 16:58:00 373 [facility] [place] Chemistry 2014-09-03 16:58:00 41 [facility] [place] Chemistry 2014-09-03 16:58:00 156 [facility] Chemistry 2014-09-03 16:58:00 139 MEQ/L [facility] [place] Chemistry 2014-09-03 16:58:00 3.7 MEQ/L [facility] [place] Chemistry 2014-09-03 16:58:00 0.7 [facility] Chemistry 2014-09-03 16:58:00 14 [facility] [place] Chemistry 2014-09-03 16:58:00 Test Item BUN/CREAT (test code = BUN/CREAT) 20 1 6-25 [facility] RmpaluuGhxexlnbh7882-13-58 16:58:004.2[facility] HermannChemistry 2014-09-03 16:58:009.7[facility] VlsaremFjcyaoboi1093-87-44 16:58:0043Mem[facility] KjmlibjNgoippvpk6136-18-82 16:58:0018Mem[facility] OknrureYeaafdlza9539-39-87 16:58:15442Vmprgjrp FxioiicGfzjdcivbs1753-46-01 16:58:0015.5[facility] [place] Xlmoxyxwtr4283-94-66 16:58:0047.0[facility] AydrqvkOefsruopkg5015-14-10 16:58:00 239 K/CMMMemorial PziqdmoSbzwqvszvi6194-49-69 16:58:00[facility] Mpvjimyret2532-14-78 16:58:00[facility] [place]
--- NOTE | 2019-12-19 18:02 | Diagnostic Imaging Report ---
EXAMINATION: CHEST SINGLE (PORTABLE) COMPARISON: None INDICATION: ^DIZZY ^[id number] ^1710 DISCUSSION: Frontal view of the chest obtained at 1700 hours. HEART AND MEDIASTINUM: The cardiomediastinal silhouette is unremarkable. LINES: None. LUNGS/PLEURA: The lungs are well inflated and clear. No pneumonia or pulmonary edema. No pleural effusion or pneumothorax. BONES AND SOFT TISSUES: Stippled sclerotic intramedullary lesion in the proximal left humerus is suggestive of enchondroma. The soft tissues are normal. IMPRESSION: No acute cardiopulmonary disease. Suspected enchondroma in the proximal left humerus. Signed by: Dr. Rahat Caro MD on 12/19/2019 5:58 PM
[2019-12-19 18:23] LABS: BILIRUBIN,URINE NEGATIVE (NEGATIVE); CLARITY,URINE SL CLOUDY (CLEAR); COLOR,URINE YELLOW (YELLOW); KETONES,URINE 1+ (NEGATIVE); LEUKOCYTE ESTERASE ,URINE NEGATIVE (NEGATIVE); NITRITE,URINE NEGATIVE (NEGATIVE); PROTEIN,URINE DIPSTICK TRACE (NEGATIVE); URINE UROBILINOGEN 0.2 mg/dL (0.2 - 1)
--- NOTE | 2019-12-19 18:38 | Diagnostic Imaging Report ---
EXAMINATION: Head CT HISTORY: Vertigo, dizziness COMPARISON: None. TECHNIQUE: Helical axial images of the head were obtained. Reformatted coronal and sagittal images from the axial data. Dose modulation, iterative reconstruction, and/or weight based adjustment of the mA/kV was utilized to reduce the radiation dose to as low as reasonably achievable. Image quality: Motion/streaking artifact limits the evaluation of the skull base and posterior cranial fossa. FINDINGS: Parenchyma: 1. No abnormal densities. 2. No mass or hemorrhage. No CT evidence of acute territorial vascular insult. Extra-axial spaces:No abnormal density. No extra-axial fluid collections Brain volume: Normal for age. Ventricles: No hydrocephalus or displacement. Arteries: No density suggestive of thrombus. Dural sinuses: No abnormal density. Foramen magnum: No mass, Chiari malformation, or basilar invagination. Sella: Partially empty, mostly CSF filled. Paranasal/mastoid sinuses: Imaged portions unremarkable. Skull/Scalp: No lytic or blastic lesions. No fractures. IMPRESSION: No intracranial abnormalities. Signed by: Dr. Michelle Thomas M.D. on 12/19/2019 6:35 PM
[2019-12-19 18:39] LABS: BACTERIA,URINE MODERATE /HPF; EPITHELIAL CELLS,URINE MODERATE /LPF
--- NOTE | 2019-12-19 19:11 | NUR ---
care assumed at this time
[2019-12-19 20:22] VITALS: BP 113/79
== END 2019-12-19 20:25 | disposition home or self-care (01) ==
LOC: ER 16:45
DX: R42 Dizziness and giddiness (principal); E11.9 Type 2 diabetes mellitus without complications; E78.5 Hyperlipidemia, unspecified
CPT/HCPCS: 36415; 70450; 71045; 80053; 81001; 82550; 82553; 83880; 84484; 85025; 85610; 85730; 87086; 93005; 99283; J2405; J7030

== ENCOUNTER → 2020-06-23 | Day surgery (SDC) | payer OTHER ==
[~2020-06-23] MED LIST changes: +FENTANYL CITRATE/PF 100MCG/2 ML INJ ONE; +LIDOCAINE HCL 2% LOCAL INJ 5 ML SDV VIAL INJ ONE; +MIDAZOLAM HCL 2 MG/2 ML VIAL ONE; +PROPOFOL IV EMULSION 10 MG/ML 20 ML VIAL ONE
[2020-06-23 14:15] VITALS: BP 121/79
[2020-06-23 14:48] LABS: WBC,FECAL (FECAL LACTOFERRIN) NEGATIVE (NEGATIVE)
[2020-06-23 15:22] LABS: C DIFFICILE TOXIN A&B AMP PROB NEGATIVE (NEGATIVE)
== END | disposition home or self-care (01) ==
LOC: OR 09:34
PROVIDERS: ATTEND Internal Medicine Gastroenterology
DX: K51.50 Left sided colitis without complications (principal); D12.3 Benign neoplasm of transverse colon; K62.89 Other specified diseases of anus and rectum; K64.8 Other hemorrhoids; E11.9 Type 2 diabetes mellitus without complications; K21.9 Gastro-esophageal reflux disease without esophagitis; F17.210 Nicotine dependence, cigarettes, uncomplicated; Z01.810 Encounter for preprocedural cardiovascular examination; Z01.812 Encounter for preprocedural laboratory examination; Z20.822 Contact with and (suspected) exposure to COVID-19; Z79.84 Long term (current) use of oral hypoglycemic drugs
CPT/HCPCS: 36415; 45380; 45384; 82948; 83630; 83993; 85651; 86140; 86256; 86671; 87045; 87177; 87328; 87493; 93005; J2001; J2704; U0002; 45378; J2250; J3010

== ENCOUNTER → 2020-07-28 | Day surgery (SDC) | payer OTHER ==
[~2020-07-28] MED LIST changes: +HYOSCYAMINE SULFATE 0.5 MG/ML INJ ONE
[2020-07-28 13:35] VITALS: BP 121/84
== END | disposition home or self-care (01) ==
LOC: OR 10:03
PROVIDERS: ATTEND Internal Medicine Gastroenterology
DX: D12.6 Benign neoplasm of colon, unspecified (principal); K64.8 Other hemorrhoids; K21.9 Gastro-esophageal reflux disease without esophagitis; E78.5 Hyperlipidemia, unspecified; E11.9 Type 2 diabetes mellitus without complications; F17.210 Nicotine dependence, cigarettes, uncomplicated; Z01.810 Encounter for preprocedural cardiovascular examination; Z79.84 Long term (current) use of oral hypoglycemic drugs
CPT/HCPCS: 36415; 45380; 45384; 82948; 93005; J1980; J2001; J2250; J2704; J3010; 45378

== ENCOUNTER → 2020-09-10 | Outpatient (CLI) | payer OTHER ==
[~2020-09-10] MED LIST changes: -FENTANYL CITRATE/PF 100MCG/2 ML INJ ONE; -HYOSCYAMINE SULFATE 0.5 MG/ML INJ ONE; -LIDOCAINE HCL 2% LOCAL INJ 5 ML SDV VIAL INJ ONE; -MIDAZOLAM HCL 2 MG/2 ML VIAL ONE; -PROPOFOL IV EMULSION 10 MG/ML 20 ML VIAL ONE
== END ==
LOC: US 07:43
PROVIDERS: ATTEND Internal Medicine Gastroenterology
DX: R10.11 Right upper quadrant pain (principal); K59.1 Functional diarrhea
CPT/HCPCS: 76700; 78227; A9537